=== PATIENT | female | born 1975 | race Caucasian/White ===

== ENCOUNTER 2017-11-24 08:19 | Emergency (ER) | payer MEDICAID ==
[2017-11-24] MEDS ORDERED: RX INFO: IV CONTRAST WAS GIVEN 1 EACH MISC MISCELLANE PRN (08:27)
[2017-11-24] MEDS ORDERED: SODIUM CHLORIDE 0.9% 1,000 ML IV STA (08:27)
[2017-11-24] MEDS ORDERED: diphenhydrAMINE 50 MG/ML 1 ML VIAL IVP STA (08:28)
[2017-11-24] MEDS ORDERED: methylPREDNISolone SOD SUCCI 125 MG/2 ML VIAL IV STA (08:28)
[2017-11-24] MEDS ORDERED: FAMOTIDINE 20 MG/2 ML VIAL IV STA (08:28)
[2017-11-24] MEDS: MORPHINE SULFATE 4 MG/ML SYRINGE IV STA ×2 (08:41→10:51)
--- NOTE | 2017-11-24 08:50 | ED ---
General Adult HPI - General Chief complaint: Back Pain/Injury Stated complaint: Back pain/arm tingling Time Seen by Provider: 11/24/17 08:28 Source: patient, RN notes reviewed, old records reviewed Mode of arrival: wheelchair Limitations: no limitations - History of Present Illness Initial comments: This is a 42-year-old female to the ER for evaluation regarding chest pain and back pain neck pain and hand tingling. Patient has no cardiogenic risk factors. No travel history no sick contacts. Patient denies any recent trauma. Symptoms began last night. Have been persistent and episodic throughout the day. No diaphoresis no shortness of breath. No recent fevers cough or congestion. No history of prior nerve issues - Related Data Home Medications Medication Instructions Recorded Confirmed ALPRAZolam [Xanax] 0.25 mg PO DAILY PRN 11/24/17 11/24/17 Cholecalciferol [Vitamin D3] 1,000 unit PO DAILY 11/24/17 11/24/17 Lisinopril [Zestril] 5 mg PO DAILY 11/24/17 11/24/17 Loratadine [Claritin] 10 mg PO DAILY 11/24/17 11/24/17 Meclizine [Antivert] 25 mg PO TID PRN 11/24/17 11/24/17 Omeprazole 20 mg PO DAILY 11/24/17 11/24/17 Allergies Allergy/AdvReac Type Severity Reaction Status Date / Time Iodinated Contrast- Oral and Allergy Dyspnea Verified 11/24/17 08:41 IV Dye Review of Systems ROS Statement: Those systems with pertinent positive or pertinent negative responses have been documented in the HPI. ROS Other: All systems not noted in ROS Statement are negative. Past Medical History Past Medical History: Hyperlipidemia, Hypertension, Thyroid Disorder Additional Past Medical History / Comment(s): CVID, reynaud's, nessa's, meniere's History of Any Multi-Drug Resistant Organisms: None Reported Past Surgical History: Appendectomy, Uterine Ablation Past Psychological History: No Psychological Hx Reported Smoking Status: Former smoker Past Alcohol Use History: Occasional Past Drug Use History: None Reported General Exam Limitations: no limitations General appearance: alert, in no apparent distress, anxious Head exam: Present: atraumatic, normocephalic, normal inspection Eye exam: Present: normal appearance, PERRL, EOMI. Absent: scleral icterus, conjunctival injection, periorbital swelling ENT exam: Present: normal exam, mucous membranes moist Neck exam: Present: normal inspection. Absent: tenderness, meningismus, lymphadenopathy Respiratory exam: Present: normal lung sounds bilaterally. Absent: respiratory distress, wheezes, rales, rhonchi, stridor Cardiovascular Exam: Present: regular rate, normal rhythm, normal heart sounds. Absent: systolic murmur, diastolic murmur, rubs, gallop, clicks GI/Abdominal exam: Present: soft, normal bowel sounds. Absent: distended, tenderness, guarding, rebound, rigid Extremities exam: Present: normal inspection, full ROM, normal capillary refill. Absent: tenderness, pedal edema, joint swelling, calf tenderness Back exam: Present: normal inspection Neurological exam: Present: alert, oriented X3, CN II-XII intact Psychiatric exam: Present: normal affect, normal mood Skin exam: Present: warm, dry, intact, normal color. Absent: rash Course Vital Signs 11/24/17 11/24/17 11/24/17 08:21 09:48 11:02 Temperature 97.0 F L 98.2 F Pulse Rate 110 H 79 83 Respiratory 18 16 16 Rate Blood Pressure 179/83 129/81 119/76 O2 Sat by Pulse 100 100 97 Oximetry - Reevaluation(s) Reevaluation #1: patient's blood pressure responded with no treatment or therapy, pain control EKG Findings - EKG Comments: EKG Findings:: EKG shows normal sinus rhythm rate of 82, VA 152, QRS 90, QTC 432 Medical Decision Making - Medical Decision Making 42 female the ER for evaluation of back pain and left neck pain and tingling in bilateral arms and hands. Patient is CK which is negative for acute disease labwork EKG and troponin are negative. Patient states that this time her symptoms are improved, she was considered for heart, symptoms 3 days. No significant acute changes. No trauma. Patient can be discharged home - Lab Data Result diagrams: 11/24/17 08:37 11/24/17 08:37 Lab Results 11/24/17 11/24/17 11/24/17 Range/Units 08:37 08:37 08:37 WBC 5.7 (3.8-10.6) k/uL RBC 4.44 (3.80-5.40) m/uL Hgb 13.6 (11.4-16.0) gm/dL Hct 42.5 (34.0-46.0) % MCV 95.6 (80.0-100.0) fL MCH 30.7 (25.0-35.0) pg MCHC 32.1 (31.0-37.0) g/dL RDW 12.5 (11.5-15.5) % Plt Count 247 (150-450) k/uL Neutrophils % 63 % Lymphocytes % 26 % Monocytes % 6 % Eosinophils % 3 % Basophils % 1 % Neutrophils # 3.6 (1.3-7.7) k/uL Lymphocytes # 1.5 (1.0-4.8) k/uL Monocytes # 0.3 (0-1.0) k/uL Eosinophils # 0.2 (0-0.7) k/uL Basophils # 0.0 (0-0.2) k/uL PT (9.0-12.0) sec INR (<1.2) APTT (22.0-30.0) sec D-Dimer (<0.60) mg/L FEU Sodium 139 (137-145) mmol/L Potassium 4.0 (3.5-5.1) mmol/L Chloride 104 (98-107) mmol/L Carbon Dioxide 24 (22-30) mmol/L Anion Gap 11 mmol/L BUN 15 (7-17) mg/dL Creatinine 0.83 (0.52-1.04) mg/dL Est GFR (MDRD) Af Amer >60 (>60 ml/min/1.73 sqM) Est GFR (MDRD) Non-Af >60 (>60 ml/min/1.73 sqM) Glucose 109 H (74-99) mg/dL Calcium 9.9 (8.4-10.2) mg/dL Phosphorus 3.4 (2.5-4.5) mg/dL Magnesium 1.8 (1.6-2.3) mg/dL Total Bilirubin 0.5 (0.2-1.3) mg/dL AST 23 (14-36) U/L ALT 36 (9-52) U/L Alkaline Phosphatase 70 (38-126) U/L Total Creatine Kinase 57 (30-135) U/L CK-MB (CK-2) 0.2 (0.0-2.4) ng/mL CK-MB (CK-2) Rel Index 0.4 Troponin I <0.012 (0.000-0.034) ng/mL Total Protein 7.2 (6.3-8.2) g/dL Albumin 4.5 (3.5-5.0) g/dL 11/24/17 Range/Units 08:37 WBC (3.8-10.6) k/uL RBC (3.80-5.40) m/uL Hgb (11.4-16.0) gm/dL Hct (34.0-46.0) % MCV (80.0-100.0) fL MCH (25.0-35.0) pg MCHC (31.0-37.0) g/dL RDW (11.5-15.5) % Plt Count (150-450) k/uL Neutrophils % % Lymphocytes % % Monocytes % % Eosinophils % % Basophils % % Neutrophils # (1.3-7.7) k/uL Lymphocytes # (1.0-4.8) k/uL Monocytes # (0-1.0) k/uL Eosinophils # (0-0.7) k/uL Basophils # (0-0.2) k/uL PT 9.8 (9.0-12.0) sec INR 1.0 (<1.2) APTT 26.0 (22.0-30.0) sec D-Dimer 0.29 (<0.60) mg/L FEU Sodium (137-145) mmol/L Potassium (3.5-5.1) mmol/L Chloride (98-107) mmol/L Carbon Dioxide (22-30) mmol/L Anion Gap mmol/L BUN (7-17) mg/dL Creatinine (0.52-1.04) mg/dL Est GFR (MDRD) Af Amer (>60 ml/min/1.73 sqM) Est GFR (MDRD) Non-Af (>60 ml/min/1.73 sqM) Glucose (74-99) mg/dL Calcium (8.4-10.2) mg/dL Phosphorus (2.5-4.5) mg/dL Magnesium (1.6-2.3) mg/dL Total Bilirubin (0.2-1.3) mg/dL AST (14-36) U/L ALT (9-52) U/L Alkaline Phosphatase (38-126) U/L Total Creatine Kinase (30-135) U/L CK-MB (CK-2) (0.0-2.4) ng/mL CK-MB (CK-2) Rel Index Troponin I (0.000-0.034) ng/mL Total Protein (6.3-8.2) g/dL Albumin (3.5-5.0) g/dL - Radiology Data Radiology results: report reviewed (CT chest is negative for acute disease), image reviewed Disposition Clinical Impression: Paresthesia, Chest pain Disposition: HOME SELF-CARE Condition: Good Instructions: Chest Pain (ED), Paresthesia (ED) Referrals: Dipti Liriano DO [Primary Care Provider] - 1-2 days
[2017-11-24 08:51] LABS: Basophils % (A) 1 %; Eosinophils # (A) 0.2 k/uL (0-0.7); Eosinophils % (A) 3 %; HCT 42.5 % (34.0-46.0); HGB 13.6 gm/dL (11.4-16.0); Lymphocytes # (A) 1.5 k/uL (1.0-4.8); Lymphocytes % (A) 26 %; MCH 30.7 pg (25.0-35.0); MCHC 32.1 g/dL (31.0-37.0); MCV 95.6 fL (80.0-100.0); Monocytes # (A) 0.3 k/uL (0-1.0); Monocytes % (A) 6 %; Neutrophils # (A) 3.6 k/uL (1.3-7.7); Neutrophils % (A) 63 %; Platelet Count 247 k/uL (150-450); RBC 4.44 m/uL (3.80-5.40); RDW 12.5 % (11.5-15.5); WBC 5.7 k/uL (3.8-10.6)
[2017-11-24 09:02] LABS: D-Dimer 0.29 mg/L FEU (<0.60)
[2017-11-24 09:07] LABS: ALT 36 U/L (9-52); AST 23 U/L (14-36); Albumin 4.5 g/dL (3.5-5.0); Alkaline Phosphatase 70 U/L (38-126); Anion Gap 11 mmol/L; Blood Urea Nitrogen 15 mg/dL (7-17); Calcium 9.9 mg/dL (8.4-10.2); Carbon Dioxide 24 mmol/L (22-30); Chloride 104 mmol/L (98-107); Glucose 109 mg/dL (74-99); Magnesium 1.8 mg/dL (1.6-2.3); Phosphorus 3.4 mg/dL (2.5-4.5); Sodium 139 mmol/L (137-145); Total Bilirubin 0.5 mg/dL (0.2-1.3); Total Protein 7.2 g/dL (6.3-8.2)
[2017-11-24 09:08] LABS: Prothrombin Time 9.8 sec (9.0-12.0)
[2017-11-24 09:11] LABS: Creatine Kinase 57 U/L (30-135)
[2017-11-24 09:23] LABS: Creatine Kinase MB 0.2 ng/mL (0.0-2.4); Troponin I <0.012 ng/mL (0.000-0.034)
--- NOTE | 2017-11-24 09:42 | CT ---
EXAMINATION TYPE: CT angio chest DATE OF EXAM: 11/24/2017 COMPARISON: NONE HISTORY: SOB, pain between shoulder blades CT DLP: 484 mGycm CONTRAST: CT chest with contrast and 3D reconstruction with MIP imaging is performed with IV Contrast, patient injected with 100 mL of Omnipaque 350. Contrast-enhanced CT of the chest was performed through the course of the pulmonary arteries with rahel g and mediastinal window settings submitted. 3D reconstruction with MIP imaging was also performed. PULMONARY ARTERIES: The pulmonary arteries and their major tributaries are patent. I do not see charlette dence for sizable filling defect to suggest pulmonary embolic process. LUNGS: The lungs are clear and free of consolidation. Groundglass densities at the lung bases may ref lect acute inflammatory process. No evidence for atelectasis. No pulmonary nodule or mass is detect ed. No pleural effusion. MEDIASTINUM: Thoracic aorta is of normal caliber,however, evaluation is limited given timing of the contrast bolus. If there is concern for thoracic aortic pathology consider SHUKRI. Correlate clinicall y . The heart is not enlarged. No evidence for mediastinal mass. No mediastinal lymph nodes greater than 1cm. HILAR STRUCTURES: No evidence for mass. No hilar lymph nodes greater than 1 cm. UPPER ABDOMEN: Nonspecific hypoattenuating lesion near the dome of the liver posterior segment right hepatic lobe measuring 2.8 cm can be further evaluated with ultrasound or contrast CT of the abdomen on a nonemergent basis. IMPRESSION: 1. No evidence for Pulmonary embolism at this time. Groundglass densities at the lung bases may refl ect acute inflammatory process. 2. Nonspecific hepatic lesion.
[2017-11-24 09:49] VITALS: RESP 16
[2017-11-24 11:03] VITALS: BP 119/76; PULSE 83; TEMP 98.2
== END 2017-11-24 11:02 | disposition home or self-care (01) ==
LOC: EC 08:19
DX: R07.9 Chest pain, unspecified (principal); R20.2 Paresthesia of skin; M54.2 Cervicalgia; M54.9 Dorsalgia, unspecified; I10 Essential (primary) hypertension; Z87.891 Personal history of nicotine dependence; Z90.49 Acquired absence of other specified parts of digestive tract; Z79.899 Other long term (current) drug therapy; Z91.041 Radiographic dye allergy status; Z53.29 Procedure and treatment not carried out because of patient's decision for other reasons
CPT/HCPCS: 36415; 93005; 85379; 80053; 82550; 82553; 83735; 84100; 84484; 85025; 85610; 85730; 71275; 99284; 96374; 96375 ×2; 96361; J1200; J2930; Q9967

== ENCOUNTER → 2018-08-06 | Outpatient (CLI) | payer MEDICAID ==
[2018-08-06 07:52] LABS: HCT 39.5 % (34.0-46.0); HGB 13.5 gm/dL (11.4-16.0); MCH 31.7 pg (25.0-35.0); MCHC 34.1 g/dL (31.0-37.0); Mean Platelet Volume 7.1; Platelet Count 204 k/uL (150-450); RBC 4.25 m/uL (3.80-5.40); RDW 13.1 % (11.5-15.5); WBC 6.3 k/uL (3.8-10.6)
[2018-08-06 19:46] LABS: LDL Cholesterol,Calculated 125.2 mg/dL (0.0-131.0); Potassium 4.1 mmol/L (3.5-5.5); VLDL Calculation 23.8 mg/dL (5.00-40.00)
== END ==
LOC: LABWHC1 06:34
PROVIDERS: ATTEND Family Medicine
DX: I10 Essential (primary) hypertension (principal); E78.00 Pure hypercholesterolemia, unspecified
CPT/HCPCS: 36415; 80051; 80061; 82565; 82947; 84450; 84460; 84520; 85027

== ENCOUNTER → 2019-02-25 | Outpatient (CLI) | payer MEDICAID ==
[2019-02-25 07:27] LABS: Basophils % (A) 1 %; Eosinophils # (A) 0.4 k/uL (0-0.7); Eosinophils % (A) 6 %; HGB 13.7 gm/dL (11.4-16.0); Lymphocytes # (A) 1.8 k/uL (1.0-4.8); Lymphocytes % (A) 28 %; MCH 30.5 pg (25.0-35.0); MCHC 32.7 g/dL (31.0-37.0); MCV 93.5 fL (80.0-100.0); Mean Platelet Volume 6.7; Monocytes # (A) 0.3 k/uL (0-1.0); Monocytes % (A) 5 %; Neutrophils # (A) 3.7 k/uL (1.3-7.7); Neutrophils % (A) 59 %; Platelet Count 252 k/uL (150-450); RBC 4.49 m/uL (3.80-5.40); RDW 12.7 % (11.5-15.5); WBC 6.3 k/uL (3.8-10.6)
[2019-02-25 08:42] LABS: Appearance,Urine Clear (Clear); Bacteria,Urine Rare /hpf; Bilirubin,Urine Negative (Negative); Blood,Urine Trace (Negative); Color,Urine Yellow; Glucose,Urine (UA) Negative (Negative); Ketones,Urine Negative (Negative); Leukocyte Esterase,Urine Negative (Negative); Mucus,Urine Rare /hpf; Nitrite,Urine Negative (Negative); Protein,Urine Trace (Negative); RBC,Urine 3 /hpf (0-5); Specific Gravity,Urine 1.023 (1.001-1.035); Squamous Epithelial Cell,Urine 7 /hpf (0-4); Urobilinogen,Urine <2.0 mg/dL (<2.0); WBC,Urine 3 /hpf (0-5)
[2019-02-25 09:17] LABS: Erythrocyte Sedimentation Rate 8 mm/hr (0-20)
[2019-02-25 12:13] LABS: Rheumatoid Factor 7 IU/mL (0-15)
[2019-02-25 12:17] LABS: Vitamin D 25 Hydroxy 21.1 ng/mL (30.0-100.0)
[2019-02-25 12:26] LABS: Protein, Total 6.2 g/dL (6.2-8.2)
[2019-02-25 12:27] LABS: ALT 19 U/L (8-44); AST 14 U/L (13-35); Albumin/Globulin Ratio 2.44 (1.60-3.17); Alkaline Phosphatase 60 U/L (41-126); C Reactive Protein <0.4 mg/dL (0.0-0.8); Carbon Dioxide 28.3 mmol/L (21.6-31.8); Chloride 105 mmol/L (96-109); Creatine Kinase 33 U/L (26-186); Globulin 1.8 g/dL (1.6-3.3); Glucose 86 mg/dL (70-110); Potassium 3.4 mmol/L (3.5-5.5); Sodium 139 mmol/L (135-145); Thyroid Peroxidase Antibodies <28.0 U/mL (0.0-60.0); Total Bilirubin 0.6 mg/dL (0.3-1.2); Total Protein 6.2 g/dL (6.2-8.2); Uric Acid 5.2 mg/dL (2.9-7.7)
[2019-02-25 12:56] LABS: Hepatitis C IgG Antibody Non-Reactive (Non-Reactive)
[2019-02-25 13:17] LABS: Thyroglobulin 2.89 ng/mL (1.60-59.90)
[2019-02-25 15:25] LABS: Anti-DNA, DS unit <1.0 IU/mL; Cardiolipin Ab IgG Interp NEGATIVE (NEGATIVE); Cardiolipin Ab IgM Interp NEGATIVE (NEGATIVE); Cardiolipin IgA Antibody 1.2 U/mL; Cardiolipin IgM Antibody 5.5 U/mL; DNA Double-Stranded NEGATIVE (NEGATIVE); RNP <0.2 AI; Scleroderma SC-70 Ab <0.2 AI
--- NOTE | 2019-02-25 16:29 | XR ---
EXAMINATION TYPE: XR hand complete bilateral DATE OF EXAM: 02/25/2019 CLINICAL HISTORY: Polyarthritis , bilateral hand pain TECHNIQUE: Frontal, lateral and oblique images of the bilateral hands were obtained. COMPARISON: None. FINDINGS: There is no acute fracture/dislocation evident in the either hand. Very minimal degenerati ve change of the first metacarpal phalangeal joint is seen bilaterally with joint space narrowing. Ca rpal carpal interspaces are maintained. Osseous mineralization is within normal limits. Soft tissues are unremarkable. IMPRESSION: There is no acute fracture or dislocation in either hand. Very minimal degenerative espitia ge of the first metacarpal phalangeal joint bilaterally.
--- NOTE | 2019-02-25 16:30 | XR ---
EXAMINATION TYPE: XR lumbosacral spine min 4V DATE OF EXAM: 02/25/2019 CLINICAL HISTORY: Polyarthritis and back pain TECHNIQUE: Frontal, lateral, and oblique images of the lumbar spine are obtained. COMPARISON: None FINDINGS: There are 5 lumbar type vertebral bodies identified. The lumbar spine shows satisfactory alignment without evidence of acute fracture or dislocation. 12th ribs are slightly asymmetric, right is longer than the left. Vertebral body heights and disk space heights are within normal limits. T he oblique images appear within normal limits. Minimal degenerative changes are seen as multilevel ve ry small anterior osteophytes and intervertebral disc space narrowing at L5-S1 as well as facet arthr opathy at L4-S1. The overlying soft tissue appears unremarkable. IMPRESSION: No acute fracture or dislocation is seen in the lumbar spine. Minimal degenerative marrero es of the lumbar spine.
--- NOTE | 2019-02-25 16:31 | XR ---
EXAMINATION TYPE: XR pelvis AP view DATE OF EXAM: 02/25/2019 CLINICAL HISTORY: Polyarthritis TECHNIQUE: A single AP view of the pelvis is obtained. COMPARISON: None. FINDINGS: There is no acute fracture/dislocation evident in the pelvis. The hip and sacroiliac join ts appear symmetric. There is minimal cephalad joint space narrowing of the femoral acetabular joints The overlying soft tissue appears unremarkable. IMPRESSION: There is no acute fracture or dislocation in the pelvis. Minimal cephalad joint space na rrowing of the femoral acetabular joints.
--- NOTE | 2019-02-25 16:32 | XR ---
EXAMINATION TYPE: XR wrist complete BILATERAL DATE OF EXAM: 02/25/2019 CLINICAL HISTORY: Polyarthropathy and bilateral wrist pain. TECHNIQUE: Frontal, lateral and oblique images of the bilateral wrists were obtained. Bilateral scap hoid views were also obtained. COMPARISON: Bilateral hand radiographs of the same date FINDINGS: There is no acute fracture/dislocation evident in either wrist. The joint spaces in the b oth wrists appear within normal limits other than very minimal joint space narrowing of the first car pal metacarpal joints. The overlying soft tissue appears unremarkable. IMPRESSION: There is no acute fracture or dislocation in either wrist. Minimal joint space narrowing of the first carpometacarpal joint bilaterally.
[2019-02-26 10:33] LABS: HLA B27 NEGATIVE
[2019-02-26 12:05] LABS: Aldolase 2.2 U/L (1.2-7.6)
[2019-02-26 12:08] LABS: Angiotensin-1 Converting Enz. 13 U/L (8-52)
[2019-02-28 11:44] LABS: Albumin 3.77 g/dL (3.80-4.90); Gamma Globulin 0.69 g/dL (0.70-1.50)
[2019-02-28 14:15] LABS: APTT 49 Sec(s) (<43); APTT 1:1 Mix 42 Sec(s) (<43); Dilute Russell Viper Venom 44 Sec(s) (<44)
[2019-02-28 15:51] LABS: C-ANCA <1:20 Titer (<1:20); P-ANCA <1:20 Titer (<1:20)
[2019-03-01 14:27] LABS: Histone Antibody 0.3 UNITS (<1.0)
[2019-03-01 14:50] LABS: Cyclic Citrullinated Pep IgG 3
== END | disposition home or self-care (01) ==
LOC: LABWHC1 07:01
PROVIDERS: ATTEND Physician Assistant Medical
DX: M19.042 Primary osteoarthritis, left hand (principal); M19.041 Primary osteoarthritis, right hand; M47.816 Spondylosis without myelopathy or radiculopathy, lumbar region; M25.859 Other specified joint disorders, unspecified hip; M25.842 Other specified joint disorders, left hand; M25.841 Other specified joint disorders, right hand; I73.00 Raynaud's syndrome without gangrene; E06.3 Autoimmune thyroiditis
CPT/HCPCS: 36415; 72110; 72170; 80053; 81001; 82085; 82164; 82306; 82550; 83516; 83520; 83883; 84165; 84432; 84439; 84443; 84550; 85025; 85613; 85652; 85730; 85732; 86038; 86140; 86147; 86160; 86162; 86200; 86225; 86235; 86255; 86334; 86376; 86431; 86800; 86803; 86812; 87340

== ENCOUNTER 2019-03-01 19:58 | Emergency (ER) | payer MEDICAID ==
[2019-03-01 20:41] VITALS: TEMP 98.1
[2019-03-01] MEDS ORDERED: ACETAMINOPHEN TAB 325 MG TAB PO STA (22:03)
--- NOTE | 2019-03-01 22:30 | ED ---
Extremity Problem HPI - General Source: patient Mode of arrival: ambulatory Limitations: no limitations <Vitaly Bo - Last Filed: 03/02/19 00:10> <Estefania Lopez - Last Filed: 03/02/19 07:50> - General Chief complaint: Extremity Problem,Nontraumatic Stated complaint: bone pain, bodyaches Time Seen by Provider: 03/01/19 21:11 - History of Present Illness Initial comments: Patient is a 43-year-old female with complex medical history of autoimmune conditions that is presenting to emergency Department for general body aches and fatigue. Patient reports that since February 17 she has developed general pain t hroughout her whole body especially in the lower extremities. Patient reports that the pain is in her "bones". Patient reports also feeling fatigued and occasionally short of breath. Patient she sees an resource development manager who referred her to a spanish language lecturer. Patient went to see the spanish language lecturer who jose labs and told her to follow up on March 09. Patient states the pain has gotten so severe in her joints that she decided to come to the emergency department. Patient does report nausea but denies vomiting or diarrhea. Patient does report occasional lightheadedness but denies headache. Patient reports taking Tylenol to alleviate her pain. Patient denies fever, chest pain, chest tightness, a bdominal pain, urinary or vaginal symptoms. (Vitaly Bo) - Related Data Home Medications Medication Instructions Recorded Confirmed Lisinopril [Zestril] 5 mg PO DAILY 11/24/17 03/01/19 Loratadine [Claritin] 10 mg PO DAILY 11/24/17 03/01/19 Omeprazole 20 mg PO DAILY 11/24/17 03/01/19 Acetaminophen [Tylenol Extra 500 mg PO Q4H PRN 03/01/19 03/01/19 Strength] Previous Rx's Medication Instructions Recorded methylPREDNISolone [Medrol Dose 4 mg PO DIRECTED #1 pack 03/02/19 Pack] Allergies Allergy/AdvReac Type Severity Reaction Status Date / Time amoxicillin Allergy Rash/Hives Verified 03/01/19 21:19 doxycycline Allergy Rash/Hives Verified 03/01/19 21:19 Iodinated Contrast- Oral and Allergy Dyspnea Verified 03/01/19 21:19 IV Dye Review of Systems ROS Other: All systems not noted in ROS Statement are negative. <Vitaly Bo - Last Filed: 03/02/19 00:10> ROS Other: All systems not noted in ROS Statement are negative. <JohnEstefania P - Last Filed: 03/02/19 07:50> ROS Statement: Those systems with pertinent positive or pertinent negative responses have been documented in the HPI. Past Medical History Past Medical History: Hyperlipidemia, Hypertension, Thyroid Disorder Additional Past Medical History / Comment(s): CVID, reynaud's, nessa's, meniere's History of Any Multi-Drug Resistant Organisms: None Reported Past Surgical History: Appendectomy, Uterine Ablation Past Psychological History: No Psychological Hx Reported Smoking Status: Former smoker Past Alcohol Use History: Occasional Past Drug Use History: None Reported <Vitaly Bo - Last Filed: 03/02/19 00:10> General Exam Limitations: no limitations General appearance: alert, in no apparent distress Head exam: Present: atraumatic, normocephalic, normal inspection Eye exam: Present: normal appearance, PERRL, EOMI Pupils: Present: normal accommodation ENT exam: Present: normal oropharynx, mucous membranes moist, TM's normal bilaterally Neck exam: Present: normal inspection, full ROM. Absent: lymphadenopathy Respiratory exam: Present: normal lung sounds bilaterally Cardiovascular Exam: Present: regular rate, normal rhythm, normal heart sounds GI/Abdominal exam: Present: soft. Absent: tenderness, guarding, rebound Extremities exam: Absent: tenderness (No tenderness of palpation.), calf tenderness Back exam: Present: normal inspection, full ROM. Absent: CVA tenderness (R), CVA tenderness (L) Neurological exam: Present: alert, oriented X3 Psychiatric exam: Present: normal affect, normal mood Skin exam: Present: warm, intact, normal color <Vitaly Bo - Last Filed: 03/02/19 00:10> - General Exam Comments Initial Comments: Neuro exam unremarkable. (Vitaly Bo) Course Vital Signs 03/01/19 03/01/19 03/01/19 20:36 21:40 23:40 Temperature 98.1 F Pulse Rate 108 H 77 81 Respiratory 20 18 18 Rate Blood Pressure 132/93 133/81 129/88 O2 Sat by Pulse 99 98 99 Oximetry 03/02/19 00:33 Temperature 98.1 F Pulse Rate 77 Respiratory 18 Rate Blood Pressure 121/78 O2 Sat by Pulse 99 Oximetry Medical Decision Making - Lab Data Result diagrams: 03/01/19 22:20 03/01/19 22:20 <Vitaly Bo - Last Filed: 03/02/19 00:10> - Lab Data Result diagrams: 03/01/19 22:20 03/01/19 22:20 <Estefania Lopez - Last Filed: 03/02/19 07:50> - Medical Decision Making Patient is a 43-year-old female presenting to emergency Department with generalized body aches and fatigue. CBC, CMP, creatinine kinase and UA were obtained. Labs were unremarkable. Patient was given Tylenol and then Toradol for pain control. Patient will be discharged with a Medrol Dosepak. Considering her complex autoimmune medical history I am suspecting an underlying autoimmune/rheumatologic condition causing her current symptoms. Patient will be discharged and advised to follow with primary care or rheumatology. Patient advised to return to the emergency department if symptoms worsen. Case discussed with physician. (Vitaly Bo) I was available for consultation in the emergency department. The history and physical exam were done by the midlevel provider. I was consulted for this pa tavon's care. I reviewed the case with the midlevel provider and based on their presentation of the patient, I agree with the assessment, medical decision making and plan of care as documented. Chart was dictated using [employer] dictation software. Attempts were made to correct any dictation errors however some typographical errors may persist. (Estefania Lopez) - Lab Data Lab Results 03/01/19 03/01/19 03/01/19 Range/Units 22:20 22:20 22:20 WBC 9.8 (3.8-10.6) k/uL RBC 4.92 (3.80-5.40) m/uL Hgb 14.8 (11.4-16.0) gm/dL Hct 45.9 (34.0-46.0) % MCV 93.3 (80.0-100.0) fL MCH 30.1 (25.0-35.0) pg MCHC 32.2 (31.0-37.0) g/dL RDW 12.7 (11.5-15.5) % Plt Count 276 (150-450) k/uL Neutrophils % 65 % Lymphocytes % 22 % Monocytes % 6 % Eosinophils % 4 % Basophils % 1 % Neutrophils # 6.4 (1.3-7.7) k/uL Lymphocytes # 2.2 (1.0-4.8) k/uL Monocytes # 0.6 (0-1.0) k/uL Eosinophils # 0.4 (0-0.7) k/uL Basophils # 0.1 (0-0.2) k/uL Sodium 140 (137-145) mmol/L Potassium 3.6 (3.5-5.1) mmol/L Chloride 105 (98-107) mmol/L Carbon Dioxide 27 (22-30) mmol/L Anion Gap 8 mmol/L BUN 11 (7-17) mg/dL Creatinine 0.74 (0.52-1.04) mg/dL Est GFR (CKD-EPI)AfAm >90 (>60 ml/min/1.73 sqM) Est GFR (CKD-EPI)NonAf >90 (>60 ml/min/1.73 sqM) Glucose 103 H (74-99) mg/dL Calcium 10.3 H (8.4-10.2) mg/dL Total Bilirubin 0.3 (0.2-1.3) mg/dL AST 16 (14-36) U/L ALT 18 (9-52) U/L Alkaline Phosphatase 61 (38-126) U/L Creatine Kinase (30-135) U/L Total Protein 7.5 (6.3-8.2) g/dL Albumin 4.7 (3.5-5.0) g/dL Urine Color Colorless Urine Appearance Clear (Clear) Urine pH 6.5 (5.0-8.0) Ur Specific [place] 1.007 (1.001-1.035) Urine Protein Negative (Negative) Urine Glucose (UA) Negative (Negative) Urine Ketones Negative (Negative) Urine Blood Negative (Negative) Urine Nitrite Negative (Negative) Urine Bilirubin Negative (Negative) Urine Urobilinogen <2.0 (<2.0) mg/dL Ur Leukocyte Esterase Negative (Negative) 03/01/19 Range/Units 22:20 WBC (3.8-10.6) k/uL RBC (3.80-5.40) m/uL Hgb (11.4-16.0) gm/dL Hct (34.0-46.0) % MCV (80.0-100.0) fL MCH (25.0-35.0) pg MCHC (31.0-37.0) g/dL RDW (11.5-15.5) % Plt Count (150-450) k/uL Neutrophils % % Lymphocytes % % Monocytes % % Eosinophils % % Basophils % % Neutrophils # (1.3-7.7) k/uL Lymphocytes # (1.0-4.8) k/uL Monocytes # (0-1.0) k/uL Eosinophils # (0-0.7) k/uL Basophils # (0-0.2) k/uL Sodium (137-145) mmol/L Potassium (3.5-5.1) mmol/L Chloride (98-107) mmol/L Carbon Dioxide (22-30) mmol/L Anion Gap mmol/L BUN (7-17) mg/dL Creatinine (0.52-1.04) mg/dL Est GFR (CKD-EPI)AfAm (>60 ml/min/1.73 sqM) Est GFR (CKD-EPI)NonAf (>60 ml/min/1.73 sqM) Glucose (74-99) mg/dL Calcium (8.4-10.2) mg/dL Total Bilirubin (0.2-1.3) mg/dL AST (14-36) U/L ALT (9-52) U/L Alkaline Phosphatase (38-126) U/L Creatine Kinase 32 (30-135) U/L Total Protein (6.3-8.2) g/dL Albumin (3.5-5.0) g/dL Urine Color Urine Appearance (Clear) Urine pH (5.0-8.0) Ur Specific [place] (1.001-1.035) Urine Protein (Negative) Urine Glucose (UA) (Negative) Urine Ketones (Negative) Urine Blood (Negative) Urine Nitrite (Negative) Urine Bilirubin (Negative) Urine Urobilinogen (<2.0) mg/dL Ur Leukocyte Esterase (Negative) Disposition Is patient prescribed a controlled substance at d/c from ED?: No Time of Disposition: 00:20 <Vitaly Bo - Last Filed: 03/02/19 00:10> <Estefania Lopez Last Filed: 03/02/19 07:50> Clinical Impression: Generalized pain Disposition: HOME SELF-CARE Condition: Stable Instructions (If sedation given, give patient instructions): Fatigue (ED) Additional Instructions: Please take prescribed medication as directed. Please follow-up with primary care and rheumatology. Please return to emergency department if symptoms worsen. Prescriptions: methylPREDNISolone [Medrol Dose Pack] 4 mg PO DIRECTED #1 pack Referrals: Dipti Liriano DO [Primary Care Provider] - 1-2 days
[2019-03-01 22:32] LABS: Basophils # (A) 0.1 k/uL (0-0.2); Basophils % (A) 1 %; Eosinophils # (A) 0.4 k/uL (0-0.7); Eosinophils % (A) 4 %; HCT 45.9 % (34.0-46.0); HGB 14.8 gm/dL (11.4-16.0); Lymphocytes # (A) 2.2 k/uL (1.0-4.8); Lymphocytes % (A) 22 %; MCH 30.1 pg (25.0-35.0); MCHC 32.2 g/dL (31.0-37.0); MCV 93.3 fL (80.0-100.0); Mean Platelet Volume 6.4; Monocytes # (A) 0.6 k/uL (0-1.0); Monocytes % (A) 6 %; Neutrophils # (A) 6.4 k/uL (1.3-7.7); Neutrophils % (A) 65 %; Platelet Count 276 k/uL (150-450); RBC 4.92 m/uL (3.80-5.40); RDW 12.7 % (11.5-15.5); WBC 9.8 k/uL (3.8-10.6)
[2019-03-01 22:33] LABS: Appearance,Urine Clear (Clear); Bilirubin,Urine Negative (Negative); Blood,Urine Negative (Negative); Color,Urine Colorless; Glucose,Urine (UA) Negative (Negative); Ketones,Urine Negative (Negative); Leukocyte Esterase,Urine Negative (Negative); Nitrite,Urine Negative (Negative); PH, Urine 6.5 (5.0-8.0); Protein,Urine Negative (Negative); Specific Gravity,Urine 1.007 (1.001-1.035); Urobilinogen,Urine <2.0 mg/dL (<2.0)
[2019-03-01 22:39] LABS: ALT 18 U/L (9-52); AST 16 U/L (14-36); Albumin 4.7 g/dL (3.5-5.0); Alkaline Phosphatase 61 U/L (38-126); Anion Gap 8 mmol/L; Blood Urea Nitrogen 11 mg/dL (7-17); Calcium 10.3 mg/dL (8.4-10.2); Carbon Dioxide 27 mmol/L (22-30); Chloride 105 mmol/L (98-107); Glucose 103 mg/dL (74-99); Potassium 3.6 mmol/L (3.5-5.1); Sodium 140 mmol/L (137-145); Total Bilirubin 0.3 mg/dL (0.2-1.3); Total Protein 7.5 g/dL (6.3-8.2)
[2019-03-01 23:51] VITALS: RESP 18
[2019-03-02] MEDS ORDERED: KETOROLAC 30 MG/ML 1 ML VIAL IVP STA (00:04)
[2019-03-02 00:35] VITALS: BP 121/78; PULSE 77
== END 2019-03-02 00:34 | disposition home or self-care (01) ==
LOC: EC 19:58
DX: R52 Pain, unspecified (principal); R53.83 Other fatigue; R06.02 Shortness of breath; I10 Essential (primary) hypertension; Z79.899 Other long term (current) drug therapy; Z88.1 Allergy status to other antibiotic agents; Z91.041 Radiographic dye allergy status; Z87.891 Personal history of nicotine dependence
CPT/HCPCS: 36415; 80053; 81003; 82550; 85025; 96374; 99283

== ENCOUNTER 2019-03-25 16:25 | Observation (INO) | payer MEDICAID ==
[2019-03-25] MEDS ORDERED: diphenhydrAMINE 50 MG/ML 1 ML VIAL IVP STA (17:18)
[2019-03-25] MEDS ORDERED: methylPREDNISolone SOD SUCCI 125 MG/2 ML VIAL IV STA (17:18)
[2019-03-25] MEDS ORDERED: FAMOTIDINE 20 MG/2 ML VIAL IV STA (17:19)
[2019-03-25 17:28] LABS: Basophils % (A) 0 %; Eosinophils # (A) 0.2 k/uL (0-0.7); Eosinophils % (A) 2 %; HCT 38.4 % (34.0-46.0); HGB 12.9 gm/dL (11.4-16.0); Lymphocytes # (A) 1.7 k/uL (1.0-4.8); Lymphocytes % (A) 21 %; MCH 30.9 pg (25.0-35.0); MCHC 33.6 g/dL (31.0-37.0); Mean Platelet Volume 6.6; Monocytes # (A) 0.4 k/uL (0-1.0); Monocytes % (A) 5 %; Neutrophils # (A) 5.9 k/uL (1.3-7.7); Neutrophils % (A) 70 %; Platelet Count 248 k/uL (150-450); RBC 4.17 m/uL (3.80-5.40); RDW 13.1 % (11.5-15.5); WBC 8.4 k/uL (3.8-10.6)
--- NOTE | 2019-03-25 17:28 | ED ---
General Adult HPI - General Chief complaint: Chest Pain Stated complaint: CHEST HEAVYNESS, NECK PAIN, SOB Time Seen by Provider: 03/25/19 16:39 Source: patient Mode of arrival: ambulatory Limitations: no limitations - History of Present Illness Initial comments: Dictation was produced using [employer] dictation software. please excuse any grammatical, word or spelling errors. Chief Complaint: 43-year-old female past medical history of Nesas's thyroiditis, dyslipidemia hypertension presents with acute onset right neck pa in. History of Present Illness: She is a 43-year-old female presents with acute onset right anterior neck pain. Patient states she woke up in her usual state of health. She was at work when she felt a strange a sharp pain originating for her right anterior neck just anterior to her sternocleidomastoid. Patient states the pain is so severe that it causes her to feel lightheaded to the point where she becomes presyncopal. Patient states she's had multiple episodes like this where she feels like she was passed out. Patient denies any neuro deficits. She is accompanied by her who is also equally concerned. The patient has a history of Nessa's thyroiditis she takes thyroid medication. Patient still feels that the right at this time. The ROS documented in this emergency department record has been reviewed and confirmed by me. Those systems with pertinent positive or negative responses have been documented in the HPI. All other systems are other negative and/or noncontributory. PHYSICAL EXAM: General Impression: Alert and oriented x3, not in acute distress HEENT: Normocephalic atraumatic, extra-ocular movements intact, pupils equal and reactive to light bilaterally, mucous membranes moist. Cardiovascular: Heart regular rate and rhythm, S1&S2 audible, no murmurs, rubs or gallops Chest: Lungs clear to auscultation bilaterally, no rhonchi, no wheeze, no rales Abdomen: Bowel sounds present, abdomen soft, non-tender, non-distended, no organomegaly Musculoskeletal: Pulses present and equal in all extremities, no peripheral edema, patient denies any reproducibility with side bending, neck rotation or neck flexion or extension. Motor: no focal deficits noted Neurological: CN II-XII grossly intact, no focal motor or sensory deficits noted, no ataxia Skin: Intact with no visualized rashes Psych: Normal affect and mood ED course: 43-year-old female presents with anterior neck pain. Patient is very anxious about her symptoms. Vital signs upon arrival are within acceptable limits. Physical examination is benign. Basic labs are obtained showing no acute processes. CT angio the head and neck was obtained to rule out any sort of serious medical disease. Vasculature is widely patent. There is no soft tissue findings to suggest patient's symptoms. At this point is likely musculoskeletal. Patient was notified of the results. Family and patient are very concerned about her symptoms. They then discussed that patient is also having postprandial epigastric pain. Patient is adamant about being placed in the hospital for GI evaluation. Given patient's symptoms of poor by mouth intake we will place patient in the hospital observation unit with GI consultation. Patient may benefit from EGD given patient's symptoms. Some concern that her symptoms are EKG interpretation: Ventricular rate 79, normal sinus rhythm,. Interval and 64, QS 92, QTC 424. No [place] prolongation, no QTC prolongation, no ST or T-wave changes noted. Overall, this EKG is unremarkable - Related Data Home Medications Medication Instructions Recorded Confirmed Lisinopril [Zestril] 5 mg PO DAILY 11/24/17 03/25/19 ALPRAZolam [Xanax] 0.25 mg PO BID PRN 03/25/19 03/25/19 Levocetirizine Dihydrochloride 5 mg PO DAILY 03/25/19 03/25/19 [Xyzal] Levothyroxine Sodium 25 mcg PO DAILY 03/25/19 03/25/19 Omeprazole 40 mg PO DAILY 03/25/19 03/25/19 Allergies Allergy/AdvReac Type Severity Reaction Status Date / Time amoxicillin Allergy Rash/Hives Verified 03/25/19 17:23 doxycycline Allergy Rash/Hives Verified 03/25/19 17:23 Iodinated Contrast- Oral and Allergy Dyspnea Verified 03/25/19 17:23 IV Dye Review of Systems ROS Statement: Those systems with pertinent positive or pertinent negative responses have been documented in the HPI. ROS Other: All systems not noted in ROS Statement are negative. Past Medical History Past Medical History: Hyperlipidemia, Hypertension, Thyroid Disorder Additional Past Medical History / Comment(s): CVID, reynaud's, nessa's, meniere's History of Any Multi-Drug Resistant Organisms: None Reported Past Surgical History: Appendectomy, Uterine Ablation Past Psychological History: Anxiety Smoking Status: Former smoker Past Alcohol Use History: Occasional Past Drug Use History: None Reported General Exam Limitations: no limitations Course Vital Signs 03/25/19 03/25/19 16:29 17:05 Temperature 97.4 F L Pulse Rate 114 H 94 Respiratory 20 Rate Blood Pressure 149/87 O2 Sat by Pulse 99 Oximetry Medical Decision Making - Lab Data Result diagrams: 03/25/19 17:22 03/25/19 17:22 Lab Results 03/25/19 03/25/19 Range/Units 17:22 17:22 WBC 8.4 (3.8-10.6) k/uL RBC 4.17 (3.80-5.40) m/uL Hgb 12.9 (11.4-16.0) gm/dL Hct 38.4 (34.0-46.0) % MCV 92.0 (80.0-100.0) fL MCH 30.9 (25.0-35.0) pg MCHC 33.6 (31.0-37.0) g/dL RDW 13.1 (11.5-15.5) % Plt Count 248 (150-450) k/uL Neutrophils % 70 % Lymphocytes % 21 % Monocytes % 5 % Eosinophils % 2 % Basophils % 0 % Neutrophils # 5.9 (1.3-7.7) k/uL Lymphocytes # 1.7 (1.0-4.8) k/uL Monocytes # 0.4 (0-1.0) k/uL Eosinophils # 0.2 (0-0.7) k/uL Basophils # 0.0 (0-0.2) k/uL Sodium 139 (137-145) mmol/L Potassium 3.5 (3.5-5.1) mmol/L Chloride 106 (98-107) mmol/L Carbon Dioxide 20 L (22-30) mmol/L Anion Gap 13 mmol/L BUN 8 (7-17) mg/dL Creatinine 0.70 (0.52-1.04) mg/dL Est GFR (CKD-EPI)AfAm >90 (>60 ml/min/1.73 sqM) Est GFR (CKD-EPI)NonAf >90 (>60 ml/min/1.73 sqM) Glucose 92 (74-99) mg/dL Calcium 9.7 (8.4-10.2) mg/dL Magnesium 1.8 (1.6-2.3) mg/dL Disposition Clinical Impression: Neck strain, Epigastric pain Disposition: ADMITTED IP TO THIS HOSP Condition: Fair Referrals: Dipti Liriano DO [Primary Care Provider] - 1-2 days Decision Time: 19:06
[2019-03-25 17:39] LABS: African American GFR (CKD) >90 (>60 ml/min/1.73 sqM); Anion Gap 13 mmol/L; Blood Urea Nitrogen 8 mg/dL (7-17); Calcium 9.7 mg/dL (8.4-10.2); Carbon Dioxide 20 mmol/L (22-30); Chloride 106 mmol/L (98-107); Glucose 92 mg/dL (74-99); Magnesium 1.8 mg/dL (1.6-2.3); Potassium 3.5 mmol/L (3.5-5.1); Sodium 139 mmol/L (137-145)
--- NOTE | 2019-03-25 18:26 | CT ---
EXAMINATION TYPE: CT angio head neck with contrast and with 3-D reconstruction renderings DATE OF EXAM: 03/25/2019 HISTORY: Right sided neck pain, chest pain and lightheadedness. COMPARISON: None CT DLP: 510.2 mGycm. Automated Exposure Control for Dose Reduction was Utilized. TECHNIQUE: CTA scan of the neck is performed with IV Contrast, patient injected with 50 mL of Isovue 370, axial images are obtained, coronal and sagittal reformatted images are reviewed. Three-D recons tructed images are created on an independent workstation and reviewed. FINDINGS: The bilateral carotid arterial systems are widely patent without narrowing, intimal flap, s tenosis, or aneurysm. The intracranial anterior arterial systems are widely patent without pathology. The bilateral vertebral arterial systems are widely patent without narrowing, intimal flap, stenosis, or aneurysm. The intracranial posterior arterial systems are widely patent without pathology. The venous structures of the neck and the intracranial dural venous sinuses are unremarkable. No incidental soft tissue or skeletal neck findings. No incidental cranial or intracranial findings. IMPRESSION: No significant abnormality is seen.
[2019-03-25] MEDS ORDERED: ONDANSETRON 4 MG/2 ML VIAL IVP PRN (18:58)
[2019-03-25] MEDS ORDERED: NALOXONE 0.4 MG/ML 1 ML VIAL IV PRN (18:58)
[2019-03-25] MEDS ORDERED: SODIUM CHLORIDE 0.9% 1,000 ML IV SCH (19:00)
[2019-03-25] MEDS ORDERED: MAG HYDROX/AL HYDROX/SIMETH 30 ML, HYOSCYAMINE ELIXIR 10 ML, CIMETIDINE HCL 300 MG, LID... PO STA ×4 (19:01)
[2019-03-25 20:26] VITALS: BMI 31.6
[2019-03-25] MEDS ORDERED: ALPRAZolam 0.25 MG TAB PO PRN (20:33)
[2019-03-25] MEDS: ACETAMINOPHEN TAB 325 MG TAB PO PRN (20:46)
[2019-03-25 23:04] LABS: INR 0.9 (<1.2); Partial Thromboplastin Time 27.7 sec (22.0-30.0)
[2019-03-26 05:12] VITALS: RESP 16
[2019-03-26] MEDS ORDERED: LEVOTHYROXINE 25 MCG TAB PO SCH (06:30)
[2019-03-26 06:43] LABS: Basophils % (A) 0 %; Eosinophils % (A) 0 %; HCT 39.7 % (34.0-46.0); HGB 13.1 gm/dL (11.4-16.0); Lymphocytes # (A) 0.6 k/uL (1.0-4.8); Lymphocytes % (A) 5 %; MCH 30.7 pg (25.0-35.0); Mean Platelet Volume 6.7; Monocytes # (A) 0.1 k/uL (0-1.0); Monocytes % (A) 1 %; Neutrophils # (A) 11.7 k/uL (1.3-7.7); Neutrophils % (A) 94 %; Platelet Count 265 k/uL (150-450); RBC 4.26 m/uL (3.80-5.40); RDW 13.2 % (11.5-15.5); WBC 12.5 k/uL (3.8-10.6)
[2019-03-26 07:16] LABS: ALT 18 U/L (9-52); AST 15 U/L (14-36); African American GFR (CKD) >90 (>60 ml/min/1.73 sqM); Albumin 4.5 g/dL (3.5-5.0); Alkaline Phosphatase 54 U/L (38-126); Anion Gap 9 mmol/L; Blood Urea Nitrogen 9 mg/dL (7-17); Calcium 9.5 mg/dL (8.4-10.2); Carbon Dioxide 24 mmol/L (22-30); Chloride 106 mmol/L (98-107); Glucose 116 mg/dL (74-99); Potassium 4.5 mmol/L (3.5-5.1); Sodium 139 mmol/L (137-145); Total Bilirubin 0.7 mg/dL (0.2-1.3); Total Protein 6.9 g/dL (6.3-8.2)
[2019-03-26] MEDS ORDERED: PANTOPRAZOLE 40 MG TABLET PO SCH (07:30)
[2019-03-26 08:32] VITALS: PULSE 80
[2019-03-26] MEDS ORDERED: NON-FORMULARY DRUG (Omeprazole [Omeprazole] 40 MG) PO SCH (09:00)
[2019-03-26] MEDS ORDERED: LISINOPRIL 5 MG TAB PO SCH (09:00)
[2019-03-26] MEDS ORDERED: LORATADINE 10 MG TAB PO SCH (09:00)
--- NOTE | 2019-03-26 09:10 | P.CRDCN ---
History of Present Illness Consult date: 03/26/19 History of present illness: This is a 43-year-old female with history of hypertension and also hypothyroidism who was in the hospital recently with pain in her legs and not feeling well. She was seen in the emergency room and was subsequently seen by family physician. She was advised to see a neurologist for further evaluation of symptoms. She now comes to the hospital with complaints of fever, brief and sharp pains in the right side of the neck radiating to the head causing dizziness. Subsequent a she may have some feeling in the chest. These brief episodes happen to 3 times yesterday and then couple of times after coming here. She was concerned that she may have some blockages of clot. Patient had a computed tomography scan of the neck which did not reveal any abnormalities. From cardiac standpoint, her EKGs and cardiac enzymes are negative. Her pains appear to be atypical. I'm going to get an echocardiogram. If that is normal, patient activity could be increased. From Cardec standpoint, she could be discharged home to have an outpatient stress test. Patient may also require some neurological evaluation Review of Systems As per the chart Past Medical History Past Medical History: Hyperlipidemia, Hypertension, Thyroid Disorder Additional Past Medical History / Comment(s): CVID, reynaud's, nessa's, meniere's History of Any Multi-Drug Resistant Organisms: None Reported Past Surgical History: Appendectomy, Uterine Ablation Past Anesthesia/Blood Transfusion Reactions: No Reported Reaction Past Psychological History: Anxiety Smoking Status: Never smoker Past Alcohol Use History: Occasional Past Drug Use History: None Reported Medications and Allergies Home Medications Medication Instructions Recorded Confirmed Type Lisinopril [Zestril] 5 mg PO DAILY 11/24/17 03/25/19 History ALPRAZolam [Xanax] 0.25 mg PO BID PRN 03/25/19 03/25/19 History Levocetirizine Dihydrochloride 5 mg PO DAILY 03/25/19 03/25/19 History [Xyzal] Levothyroxine Sodium 25 mcg PO DAILY 03/25/19 03/25/19 History Meclizine [Antivert] 25 mg PO TID PRN 03/25/19 03/25/19 History Omeprazole 40 mg PO DAILY 03/25/19 03/25/19 History Allergies Allergy/AdvReac Type Severity Reaction Status Date / Time amoxicillin Allergy Rash/Hives Verified 03/25/19 20:28 clavulanic acid Allergy Rash/Hives Verified 03/25/19 20:28 [From Augmentin] doxycycline Allergy Rash/Hives Verified 03/25/19 20:28 Iodinated Contrast- Oral and Allergy Dyspnea Verified 03/25/19 20:28 IV Dye Physical Exam Vitals: Vital Signs Temp Pulse Pulse Pulse Pulse Resp BP 03/26/19 08:00 98.1 F 80 16 03/26/19 04:07 98.0 F 64 16 03/26/19 00:00 98.0 F 68 15 03/25/19 20:00 98.2 F 76 15 03/25/19 19:38 98.6 F 80 18 132/82 03/25/19 17:05 94 03/25/19 16:29 97.4 F L 114 H 20 149/87 BP BP Pulse Ox 03/26/19 08:00 119/75 97 03/26/19 04:07 104/66 97 03/26/19 00:00 112/72 97 03/25/19 20:00 110/76 96 03/25/19 19:38 97 03/25/19 17:05 03/25/19 16:29 99 Intake and Output 03/25/19 03/26/19 03/26/19 22:59 06:59 14:59 Other: # Voids 1 1 Weight 86.183 kg GENERAL EXAM: Patient is alert and oriented and doesn't appear to be in any acute distress HEENT: Normocephalic. Normal reaction of pupils, equal size, normal range of extraocular motion. No erythema or exudates in the throat. NECK: No masses, no nuchal rigidity. CHEST: No chest wall deformity. LUNGS: [Equal air entry with no crackles or wheeze.] HEART: [S1 and S2 normal with no audible mumurs or gallops. Regular rhythm, femorals equal on both sides..] ABDOMEN: No hepatosplenomegaly, normal bowel sounds, no guarding or rigidity. SKIN: No rashes CENTRAL NERVOUS SYSTEM: No focal deficits. EXTREMITIES: [No cyanosis, clubbing or edema.] Results 03/26/19 06:08 03/26/19 06:08 Cardiac Enzymes 03/25/19 03/26/19 03/26/19 Range/Units 17:22 00:49 06:08 AST 15 (14-36) U/L Troponin I <0.012 <0.012 (0.000-0.034) ng/mL 03/26/19 Range/Units 06:08 AST (14-36) U/L Troponin I <0.012 (0.000-0.034) ng/mL Coagulation 03/25/19 Range/Units 17:22 PT 10.0 (9.0-12.0) sec APTT 27.7 (22.0-30.0) sec CBC 03/25/19 03/26/19 Range/Units 17:22 06:08 WBC 8.4 12.5 H (3.8-10.6) k/uL RBC 4.17 4.26 (3.80-5.40) m/uL Hgb 12.9 13.1 (11.4-16.0) gm/dL Hct 38.4 39.7 (34.0-46.0) % Plt Count 248 265 (150-450) k/uL Comprehensive Metabolic Panel 03/25/19 03/26/19 Range/Units 17:22 06:08 Sodium 139 139 (137-145) mmol/L Potassium 3.5 4.5 (3.5-5.1) mmol/L Chloride 106 106 (98-107) mmol/L Carbon Dioxide 20 L 24 (22-30) mmol/L BUN 8 9 (7-17) mg/dL Creatinine 0.70 0.76 (0.52-1.04) mg/dL Glucose 92 116 H (74-99) mg/dL Calcium 9.7 9.5 (8.4-10.2) mg/dL AST 15 (14-36) U/L ALT 18 (9-52) U/L Alkaline Phosphatase 54 (38-126) U/L Total Protein 6.9 (6.3-8.2) g/dL Albumin 4.5 (3.5-5.0) g/dL Current Medications Generic Name Dose Route Start Last Admin Trade Name Freq PRN Reason Stop Dose Admin Acetaminophen 650 mg 03/25/19 18:58 03/25/19 20:46 Tylenol Tab PO 650 mg Q6HR PRN Administration Mild Pain or Fever > 100.5 Alprazolam 0.25 mg 03/25/19 20:33 Xanax PO BID PRN Anxiety Sodium Chloride 1,000 mls @ 80 mls/hr 03/25/19 19:00 03/26/19 01:00 Saline 0.9% IV 80 mls/hr .[id number] NOAH Administration Levothyroxine Sodium 25 mcg 03/26/19 06:30 03/26/19 06:08 Synthroid PO 25 mcg DAILY@0630 ONAH Administration Lisinopril 5 mg 03/26/19 09:00 Zestril PO DAILY NOAH Loratadine 10 mg 03/26/19 09:00 Claritin PO DAILY NOAH Naloxone HCl 0.2 mg 03/25/19 18:58 Narcan IV Q2M PRN Opioid Reversal Ondansetron HCl 4 mg 03/25/19 18:58 Zofran IVP Q8HR PRN Nausea And Vomiting Pantoprazole Sodium 40 mg 03/26/19 07:30 Protonix PO AC-BID NOAH Intake and Output 03/25/19 03/26/19 03/26/19 22:59 06:59 14:59 Other: # Voids 1 1 Weight 86.183 kg 03/26/19 06:08 03/26/19 06:08 EKG Interpretations (text) Sinus rhythm Assessment and Plan (1) Hypertension Current Visit: Yes Status: Acute Code(s): I10 - ESSENTIAL (PRIMARY) HYPERTENSION SNOMED Code(s): 11540707 (2) Neck strain Current Visit: Yes Status: Acute Code(s): S16.1XXA - STRAIN OF MUSCLE, FASCIA AND TENDON AT NECK LEVEL, INIT SNOMED Code(s): 947906125 (3) Generalized pain Current Visit: No Status: Acute Code(s): R52 - PAIN, UNSPECIFIED SNOMED Code(s): 10061958 (4) Hyperlipidemia Current Visit: Yes Status: Acute Code(s): E78.5 - HYPERLIPIDEMIA, UNSPECIFIED SNOMED Code(s): 48196285 Plan: We'll get an echocardiogram. If that appears to be normal, patient could be discharged home. Outpatient stress test could be arranged
[2019-03-26] MEDS: ACETAMINOPHEN TAB 325 MG TAB PO PRN (12:07)
[2019-03-26 12:21] VITALS: BP 106/72; TEMP 98.2
--- NOTE | 2019-03-26 17:36 | ECHOF ---
Referral Reason:Chest pain and cardiomyopathy MEASUREMENTS -------- HEIGHT: 165.1 cm WEIGHT: 86.2 kg BP: IVSd: 0.9 cm (0.6 - 1.1) LVIDd: 4.0 cm (3.9 - 5.3) LVPWd: 1.2 cm (0.6 - 1.1) EDV(Teich): 70 ml IVSs: 1.6 cm LVIDs: 2.0 cm LVPWs: 2.0 cm %IVS Thck: 71 % ESV(Teich): 13 ml EF(Teich): 81 % %FS: 50 % SV(Teich): 57 ml RVIDd: 3.1 cm (< 3.3) IVC: 15.69 mm LALs A4C: 4.5 cm LAAs A4C: 13.1 cm LAESV A-L A4C: 33 ml LAESV MOD A4C: 31 ml LALs A2C: 4.5 cm LAAs A2C: 11.3 cm LAESV A-L A2C: 24 ml LAESV MOD A2C: 22 ml LAESV(A-L): 28 ml LAESV Index (A-L): 14.55 ml/m Ao Diam: 2.9 cm (2.0 - 3.7) LA Diam: 3.1 cm (2.7 - 3.8) AV Cusp: 2.4 cm (1.5 - 2.6) EPSS: 0.5 cm MV E Ryan: 0.85 m/s MV DecT: 221 ms MV Dec [place]: 3.8 m/s MV A Ryan: 0.91 m/s MV E/A Ratio: 0.94 MV PHT: 64 ms MR Vmax: 1.38 m/s MR maxP.60 mmHg AV Vmax: 1.13 m/s AV maxP.09 mmHg TR Vmax: 1.67 m/s TR maxP.19 mmHg RAP: 5.00 mmHg RVSP: 16.19 mmHg MV EF SLOPE: 134.97 mm/s (70 - 150) MV EXCURSION: 17.35 mm (> 18.000) FINDINGS -------- Sinus rhythm. This was a technically good study. The left ventricular size is normal. There is borderline concentric left ventricular hypertrophy. Overall left ventricular systolic function is normal with, an EF between 55 - 60 %. The right ventricle is normal in size. The left atrial size is normal. Normal LA size by volume 22+/-6 ml/m2. The right atrial size is normal. Interatrial and interventricular septum intact. The aortic valve is trileaflet and appears structurally normal. The mitral valve leaflets are mildly thickened. There is trace mitral regurgitation. Trace tricuspid regurgitation present. There is no evidence of pulmonary hypertension. The right ventricular systolic pressure, as measured by Doppler, is 16.19mmHg. Pulmonic valve appears structurally normal. The aortic root size is normal. Normal inferior vena cava with normal inspiratory collapse consistent with estimated right atrial pre ssure of 5 mmHg. There is no pericardial effusion. CONCLUSIONS -------- 1. Sinus rhythm. 2. This was a technically good study. 3. The left ventricular size is normal. 4. There is borderline concentric left ventricular hypertrophy. 5. Overall left ventricular systolic function is normal with, an EF between 55 - 60 %. 6. The right ventricle is normal in size. 7. The left atrial size is normal. 8. Normal LA size by volume 22+/-6 ml/m2. 9. The right atrial size is normal. 10. Interatrial and interventricular septum intact. 11. The aortic valve is trileaflet and appears structurally normal. 12. The mitral valve leaflets are mildly thickened. 13. There is trace mitral regurgitation. 14. Trace tricuspid regurgitation present. 15. There is no evidence of pulmonary hypertension. 16. The right ventricular systolic pressure, as measured by Doppler, is 16.19mmHg. 17. Pulmonic valve appears structurally normal. 18. The aortic root size is normal. 19. Normal inferior vena cava with normal inspiratory collapse consistent with estimated right atrial pressure of 5 mmHg. 20. There is no pericardial effusion. SHIRT FOLDING MACHINE OPERATOR: Deborah Beverly RDCS
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
== END 2019-03-26 15:09 | disposition home or self-care (01) ==
LOC: EC 16:25 → 1SOBS 18:58
PROVIDERS: ADMIT Internal Medicine; ATTEND Internal Medicine
DX: S16.1XXA Strain of muscle, fascia and tendon at neck level, initial encounter (principal); R42 Dizziness and giddiness; R07.9 Chest pain, unspecified; R10.13 Epigastric pain; R10.10 Upper abdominal pain, unspecified; R10.30 Lower abdominal pain, unspecified; I10 Essential (primary) hypertension; E06.3 Autoimmune thyroiditis; E78.5 Hyperlipidemia, unspecified; F41.9 Anxiety disorder, unspecified; Z87.828 Personal history of other (healed) physical injury and trauma; R55 Syncope and collapse; R23.2 Flushing; R19.7 Diarrhea, unspecified; D83.9 Common variable immunodeficiency, unspecified; M79.605 Pain in left leg; M79.604 Pain in right leg; R50.9 Fever, unspecified; E66.9 Obesity, unspecified; Z68.31 Body mass index [BMI] 31.0-31.9, adult; M50.30 Other cervical disc degeneration, unspecified cervical region; I73.00 Raynaud's syndrome without gangrene; H81.09 Meniere's disease, unspecified ear; Z79.899 Other long term (current) drug therapy; Z79.890 Hormone replacement therapy; Z88.0 Allergy status to penicillin; Z88.1 Allergy status to other antibiotic agents; Z91.041 Radiographic dye allergy status; Z87.891 Personal history of nicotine dependence
CPT/HCPCS: 36415; 70496; 70498; 80048; 80053; 83735; 84484; 85025; 85610; 85730; 93005; 93306; 96374; 96375; 99285

== ENCOUNTER → 2020-06-06 | Outpatient (CLI) | payer MEDICAID ==
--- NOTE | 2020-06-06 13:33 | MM ---
Reason for exam: screening (asymptomatic). Last mammogram was performed 1 year and 9 months ago. Physical Findings: A clinical breast exam by your physician is recommended on an annual basis and results should be correlated with mammographic findings. MG 3D Screening Mammo W/Cad Bilateral CC and MLO view(s) were taken. Prior study comparison: September 11, 2018, mammogram, performed at [facility]. July 07, 2017, mammogram, performed at [facility]. May 27, 2016, mammogram, performed at [facility]. March 14, 2015, mammogram, performed at [facility]. January 24, 2014, mammogram, performed at [facility]. The breast tissue is extremely dense which could obscure a lesion on mammography. There is chronic nodularity in the left breast posterior CC view. No significant changes when compared with prior studies. ASSESSMENT: Benign, BI-RAD 2 RECOMMENDATION: Routine screening mammogram of both breasts in 1 year.
== END | disposition home or self-care (01) ==
LOC: RADMAMWWP 06:57
PROVIDERS: ATTEND Obstetrics & Gynecology
DX: Z12.31 Encounter for screening mammogram for malignant neoplasm of breast (principal)
CPT/HCPCS: 77063; 77067

== ENCOUNTER → 2021-01-24 | Outpatient (CLI) | payer MEDICAID ==
--- NOTE | 2021-01-24 12:50 | XR ---
EXAMINATION TYPE: XR knee complete RT DATE OF EXAM: 01/24/2021 CLINICAL HISTORY: Shooting pain. TECHNIQUE: Three views of the right knee are obtained. COMPARISON: None. FINDINGS: There is no acute fracture/dislocation evident in right knee. Mild tricompartment joint sp markus loss. No significant spurring. The overlying soft tissue appears unremarkable. IMPRESSION: As above.
--- NOTE | 2021-01-24 12:51 | XR ---
EXAMINATION TYPE: XR ankle complete RT DATE OF EXAM: 01/24/2021 CLINICAL HISTORY: Pain. TECHNIQUE: Frontal, lateral and oblique images of the right ankle are obtained. COMPARISON: None. FINDINGS: There is no acute fracture/dislocation evident in the right ankle. The ankle mortise appe ars within normal limits. The overlying soft tissue appears unremarkable. IMPRESSION: Unremarkable study.
== END | disposition home or self-care (01) ==
LOC: LABWHC1 11:19
PROVIDERS: ATTEND Family Medicine
DX: M25.861 Other specified joint disorders, right knee (principal)
CPT/HCPCS: 36415; 85379

== ENCOUNTER → 2021-05-21 | Outpatient (CLI) | payer MEDICAID ==
--- NOTE | 2021-05-21 08:46 | XR ---
EXAMINATION TYPE: XR foot complete LT DATE OF EXAM: 05/21/2021 COMPARISON: None HISTORY: Pain, injury TECHNIQUE: 3 view left foot FINDINGS: No acute fractures or dislocations are evident. Joint spaces are preserved. May be some mil d soft tissue swelling over the distal dorsal foot. There may be some soft tissue swelling over the s econd through fifth digits. Follow up exams can be performed 7-10 days from acute trauma for continued pain. IMPRESSION: 1. No acute osseous abnormality. 2. Soft tissue swelling distal foot
--- NOTE | 2021-05-21 08:48 | XR ---
EXAMINATION TYPE: XR ankle complete LT DATE OF EXAM: 05/21/2021 COMPARISON: None HISTORY: Fall, pain TECHNIQUE: 3 view left ankle FINDINGS: Ankle mortise is intact. No acute fracture or dislocation is evident. Soft tissues appear n ormal. Follow up exams can be performed 7-10 days from acute trauma for continued pain IMPRESSION: 1. Normal three-view left ankle
== END | disposition home or self-care (01) ==
LOC: RADXRMAIN 07:43
PROVIDERS: ATTEND Family Medicine
DX: M79.89 Other specified soft tissue disorders (principal); M25.572 Pain in left ankle and joints of left foot

== ENCOUNTER → 2021-07-06 | Outpatient (CLI) | payer MEDICAID ==
[2021-07-06 17:17] LABS: African American GFR (CKD) 87.6 (60.0-200.0); Anion Gap 5.7 mmol/L (4.00-12.00); BUN/Creat Ratio 18.89 Ratio (12.00-20.00); Calcium 9.6 mg/dL (8.7-10.3); Carbon Dioxide 30.3 mmol/L (21.6-31.8); Chol/HDL Ratio 3.32; LDL Cholesterol,Calculated 139.2 mg/dL (0.0-131.0); Non-African American GFR(CKD) 75.6 (60.0-200.0); Potassium 4.3 mmol/L (3.5-5.5); VLDL Calculation 18.8 mg/dL (5.00-40.00)
== END | disposition home or self-care (01) ==
LOC: LABWHC1 08:58
PROVIDERS: ATTEND Internal Medicine Endocrinology, Diabetes & Metabolism
DX: E55.9 Vitamin D deficiency, unspecified (principal); E78.5 Hyperlipidemia, unspecified; E03.9 Hypothyroidism, unspecified
CPT/HCPCS: 36415; 80048; 80061; 82306; 82607; 84439; 84443; 84480; 86376

== ENCOUNTER → 2021-09-04 | Outpatient (CLI) | payer MEDICAID ==
--- NOTE | 2021-09-09 11:31 | MM ---
Reason for exam: screening (asymptomatic). Last mammogram was performed 1 year and 3 months ago. Physical Findings: A clinical breast exam by your physician is recommended on an annual basis and results should be correlated with mammographic findings. MG 3D Screening Mammo W/Cad Bilateral CC and MLO view(s) were taken. Prior study comparison: June 06, 2020, bilateral MG 3d screening mammo w/cad. September 11, 2018, mammogram, performed at [facility]. The breast tissue is heterogeneously dense. This may lower the sensitivity of mammography. There are benign appearing round calcifications bilaterally. There is no discrete abnormality. ASSESSMENT: Benign, BI-RAD 2 RECOMMENDATION: Routine screening mammogram of both breasts in 1 year.
== END | disposition home or self-care (01) ==
LOC: RADMAMWWP 15:57
PROVIDERS: ATTEND Obstetrics & Gynecology
DX: Z12.31 Encounter for screening mammogram for malignant neoplasm of breast (principal)
CPT/HCPCS: 77063; 77067

== ENCOUNTER → 2022-04-18 | Outpatient (CLI) | payer MEDICAID ==
--- NOTE | 2022-04-19 06:33 | XR ---
EXAMINATION TYPE: XR ankle complete RT, XR foot complete RT DATE OF EXAM: 04/18/2022 CLINICAL HISTORY: Pain after injury. TECHNIQUE: Frontal, lateral and oblique images of the right ankle and foot are obtained. COMPARISON: Prior right ankle x-ray January 24, 2021. FINDINGS: There is no acute fracture/dislocation evident in the right ankle. The ankle mortise appe ars within normal limits. The overlying soft tissue appears unremarkable. There is no acute fracture or dislocation evident in the right foot. Flexion and varus positioning d istal fifth toe. The joint spaces in the right foot are preserved. Overlying soft tissue is unremark able. IMPRESSION: There is no acute fracture or dislocation in the right ankle or foot.
== END | disposition home or self-care (01) ==
LOC: RADXRMAIN 17:26
PROVIDERS: ATTEND Internal Medicine
DX: M25.571 Pain in right ankle and joints of right foot (principal)

== ENCOUNTER → 2022-05-14 | Outpatient (CLI) | payer MEDICAID ==
[2022-05-14 18:09] LABS: HCT 42.3 % (37.2-46.3); HGB 13.3 g/dL (12.0-15.0); MCH 29.7 pg (27.0-32.0); MCHC 31.4 g/dL (32.0-37.0); MCV 94.4 fL (80.0-97.0); Mean Platelet Volume 10.3 fL (9.5-12.2); NRBC Per 100 WBC 0 /100 WBCS (0.0-0.0); Platelet Count 234 X 10*3/uL (140-440); RBC 4.48 X 10*6/uL (4.10-5.20); RDW 13.5 % (11.5-14.5); WBC 6.35 X 10*3/uL (4.50-10.00)
[2022-05-14 18:36] LABS: African American GFR (CKD) 100.3 (60.0-200.0); Anion Gap 12.1 mmol/L (10.00-18.00); BUN/Creat Ratio 20.38 Ratio (12.00-20.00); Blood Urea Nitrogen 16.3 mg/dL (9.0-27.0); Calcium 9.4 mg/dL (8.7-10.3); Carbon Dioxide 26.9 mmol/L (20.0-27.5); Non-African American GFR(CKD) 86.6 (60.0-200.0); Potassium 3.9 mmol/L (3.5-5.5); T4, Free (Free Thyroxine) 0.9 ng/dL (0.800-1.800)
== END | disposition home or self-care (01) ==
LOC: LABWHC1 12:05
PROVIDERS: ATTEND Internal Medicine Endocrinology, Diabetes & Metabolism
DX: E03.9 Hypothyroidism, unspecified (principal); E55.9 Vitamin D deficiency, unspecified; E78.5 Hyperlipidemia, unspecified
CPT/HCPCS: 36415; 80048; 82306; 82607; 84439; 84443; 84481; 85027; 86376

== ENCOUNTER → 2022-08-06 | Outpatient (CLI) | payer MEDICAID ==
[2022-08-06 11:32] LABS: Basophils # (A) 0.04 X 10*3/uL (0.00-0.10); Basophils % (A) 0.8 %; Eosinophils # (A) 0.18 X 10*3/uL (0.04-0.35); Eosinophils % (A) 3.4 %; HGB 12.8 g/dL (12.0-15.0); Immature Grans, Automated 0.6 %; Lymphocytes # (A) 1.54 X 10*3/uL (0.90-5.00); Lymphocytes % (A) 29.3 %; MCH 30.5 pg (27.0-32.0); MCHC 33.7 g/dL (32.0-37.0); MCV 90.5 fL (80.0-97.0); Mean Platelet Volume 9.9 fL (9.5-12.2); Monocytes # (A) 0.45 X 10*3/uL (0.20-1.00); Monocytes % (A) 8.6 %; NRBC Per 100 WBC 0 /100 WBCS (0.0-0.0); Neutrophils # (A) 3.02 X 10*3/uL (1.80-7.70); Neutrophils % (A) 57.3 %; Platelet Count 208 X 10*3/uL (140-440); RDW 12.9 % (11.5-14.5); WBC 5.26 X 10*3/uL (4.50-10.00)
[2022-08-06 11:48] LABS: ALT 16 U/L (8-44); AST 21 U/L (13-35); African American GFR (CKD) 100.3 (60.0-200.0); Blood Urea Nitrogen 14.1 mg/dL (9.0-27.0); Chol/HDL Ratio 4.43 Ratio; LDL Cholesterol,Calculated 158.3 mg/dL (0.0-131.0); Non-African American GFR(CKD) 86.6 (60.0-200.0); VLDL Calculation 17.54 mg/dL (5.00-40.00)
== END | disposition home or self-care (01) ==
LOC: LABWHC1 07:10
PROVIDERS: ATTEND Internal Medicine Endocrinology, Diabetes & Metabolism
DX: E66.9 Obesity, unspecified (principal); E55.9 Vitamin D deficiency, unspecified; L65.0 Telogen effluvium
CPT/HCPCS: 36415; 80061; 82306; 82565; 82607; 84439; 84443; 84450; 84460; 84481; 84520; 85025; 86376

== ENCOUNTER → 2022-11-10 | Outpatient (CLI) | payer MEDICAID ==
--- NOTE | 2022-11-10 08:36 | MM ---
Reason for Exam: Screening (asymptomatic). Last mammogram was performed 1 year(s) and 2 month(s) ago. Patient History: Menarche at age 10. First Full-Term at age 19. Patient has history of breast feeding. Risk Values: Kelsey 5 year model risk: 0.8%. NCI Lifetime model risk: 8.2%. Prior Study Comparison: 05/27/2016 Screening Mammogram, [facility]. 07/07/2017 Screening Mammogram, [facility]. 09/11/2018 Screening Mammogram, [facility]. 06/06/2020 Bilateral Screening Mammogram, [facility]. 09/04/2021 Bilateral Screening Mammogram, [facility]. Tissue Density: The breast tissue is heterogeneously dense. This may lower the sensitivity of mammography. Findings: Analyzed By CAD. There is no suspicious new group of microcalcifications or new suspicious mass in either breast. Overall Assessment: Negative, BI-RAD 1 Management: Screening Mammogram of both breasts in 1 year. Some advise bilateral breast ultrasound surveillance in patient with background dense tissue. A clinical breast exam by your physician is recommended on an annual basis and results should be correlated with mammographic findings. Electronically signed and approved by: David Viveros M.D.
== END | disposition home or self-care (01) ==
LOC: RADMAMWWP 06:54
PROVIDERS: ATTEND Obstetrics & Gynecology
DX: Z12.31 Encounter for screening mammogram for malignant neoplasm of breast (principal)
CPT/HCPCS: 77063; 77067

== ENCOUNTER → 2023-01-17 | Outpatient (CLI) | payer MEDICAID ==
[2023-01-17 22:38] LABS: Basophils # (A) 0.05 X 10*3/uL (0.00-0.10); Basophils % (A) 0.9 %; Eosinophils # (A) 0.14 X 10*3/uL (0.04-0.35); Eosinophils % (A) 2.5 %; HCT 39.2 % (37.2-46.3); Immature Grans, Automated 0.2 %; Lymphocytes % (A) 26.5 %; MCH 30.6 pg (27.0-32.0); MCHC 33.2 g/dL (32.0-37.0); MCV 92.2 fL (80.0-97.0); Mean Platelet Volume 9.8 fL (9.5-12.2); Monocytes # (A) 0.49 X 10*3/uL (0.20-1.00); Monocytes % (A) 8.7 %; NRBC Per 100 WBC 0 /100 WBCS (0.0-0.0); Neutrophils # (A) 3.47 X 10*3/uL (1.80-7.70); Neutrophils % (A) 61.2 %; Platelet Count 210 X 10*3/uL (140-440); RBC 4.25 X 10*6/uL (4.10-5.20); RDW 13.2 % (11.5-14.5); WBC 5.66 X 10*3/uL (4.50-10.00)
[2023-01-17 23:19] LABS: ALT 65 U/L (8-44); AST 22 U/L (13-35); Albumin 4.8 g/dL (3.8-4.9); Albumin/Globulin Ratio 2.29 (1.60-3.17); Alkaline Phosphatase 92 U/L (41-126); BUN/Creat Ratio 23.44 Ratio (12.00-20.00); Blood Urea Nitrogen 21.1 mg/dL (9.0-27.0); Calcium 10.1 mg/dL (8.7-10.3); Carbon Dioxide 28.7 mmol/L (20.0-27.5); Chloride 97 mmol/L (96-109); Chol/HDL Ratio 3.44 Ratio; Globulin 2.1 g/dL (1.6-3.3); Glucose 91 mg/dL (70-110); Magnesium 1.9 mg/dL (1.5-2.4); Non-African American GFR(CKD) 75.1 (60.0-200.0); Potassium 3.7 mmol/L (3.5-5.5); Sodium 137 mmol/L (135-145); Total Protein 6.9 g/dL (6.2-8.2); VLDL Calculation 16.92 mg/dL (5.00-40.00)
== END | disposition home or self-care (01) ==
LOC: LABWHC1 11:40
PROVIDERS: ATTEND Internal Medicine
DX: Z00.00 Encounter for general adult medical examination without abnormal findings (principal); E03.9 Hypothyroidism, unspecified; E78.5 Hyperlipidemia, unspecified
CPT/HCPCS: 36415; 80053; 80061; 82306; 82607; 83735; 84439; 84443; 84480; 85025

== ENCOUNTER → 2023-01-30 | Outpatient (CLI) | payer MEDICAID ==
--- NOTE | 2023-01-30 11:01 | US ---
EXAMINATION TYPE: US liver DATE OF EXAM: 01/30/2023 COMPARISON: NONE CLINICAL INDICATION: Female, 47 years old with history of R74.01 ELEVATED ALT; Follow up hepatic cyst TECHNIQUE: Multiple sonographic images of the right upper quadrant are obtained. FINDINGS: EXAM MEASUREMENTS: Liver Length: 12.4 cm Gallbladder Wall: 0.1 cm CBD: 0.4 cm Right Kidney: 10.4 x 4.7 x 4.3 cm Pancreas: visualized portions appear wnl Liver: cystic area = 1. 6 x 1.3 x 1.8cm Gallbladder: no evidence of stones Evidence for sonographic Hernandez's sign: no CBD: appears wnl Right Kidney: no evidence of hydronephrosis IMPRESSION: 1. Small hepatic cyst. This cannot be completely confirmed as simple. Monitoring is recommended.
== END | disposition home or self-care (01) ==
LOC: RADUSWWP 09:18
PROVIDERS: ATTEND Internal Medicine
DX: K76.89 Other specified diseases of liver (principal); R74.01 Elevation of levels of liver transaminase levels
CPT/HCPCS: 76705

== ENCOUNTER → 2023-02-11 | Outpatient (CLI) | payer MEDICAID ==
--- NOTE | 2023-02-11 16:22 | CT ---
EXAMINATION TYPE: CT abdomen wo/w con DATE OF EXAM: 02/11/2023 COMPARISON: Liver ultrasound January 30, 2023 HISTORY: LIVER CYST. HEMANGIOMA PROTOCOL. . Abnormal ultrasound. CT DLP: 6.60 mGycm Automated exposure control for dose reduction was used. TECHNIQUE: Helical acquisition of images was performed from the lung bases through the top of iliac crest to include entire abdomen. CONTRAST: Performed without Oral Contrast and without and with IV Contrast, patient injected with 100 mL of Iso trice 300. FINDINGS: LUNG BASES: No significant abnormality is appreciated. LIVER/GB: In the posterior right hepatic dome there is 1.6 x 1.2 cm nonenhancing oval hypodense lesio n consistent with fine thin wall cyst corresponding to area of concern on recent ultrasound. Remainde r of liver shows no suspicious solid or cystic mass. No biliary dilatation is evident. PANCREAS: No significant abnormality is seen. SPLEEN: No significant abnormality is seen. ADRENALS: No significant abnormality is seen. KIDNEYS: No significant abnormality is seen. BOWEL: No significant abnormality is seen. LYMPH NODES: No significant abnormality is seen. OSSEOUS STRUCTURES: There is a sacralized L5 vertebra noted. FREE AIR: No free air is visualized. OTHER: Tiny fat-containing umbilical hernia sagittal image 97 series 14. IMPRESSION: Confirmation of 1.6 cm simple thin-walled cyst posterior right hepatic dome. No worrisome intrahepatic masses.
== END | disposition home or self-care (01) ==
LOC: RADCTMAIN 15:23
PROVIDERS: ATTEND Internal Medicine
DX: K76.89 Other specified diseases of liver (principal)
CPT/HCPCS: 74170; Q9967

== ENCOUNTER → 2023-07-24 | Outpatient (CLI) | payer MEDICAID ==
--- NOTE | 2023-07-24 11:52 | US ---
EXAMINATION TYPE: US kidneys/renal and bladder DATE OF EXAM: 07/24/2023 COMPARISON: CT 02/11/23 CLINICAL INDICATION: Female, 48 years old with history of R30.0 DYSURIA; EXAM MEASUREMENTS: Right Kidney: 10.3 x 4.1 x 4.6 cm Left Kidney: 10.0 x 5.1 x 4.3 cm Post Void Residual Volume: 8 mL Right Kidney: wnl Left Kidney: wnl Bladder: wnl Bilateral Jets seen: no Normal Post Void Residual: yes There is no evidence for hydronephrosis at this point in time. No nephrolithiasis is seen. No janet s are identified. The urinary bladder is anechoic. Bilateral ureteral jets are seen. IMPRESSION: No significant abnormality seen.
== END | disposition home or self-care (01) ==
LOC: RADUSWWP 10:50
PROVIDERS: ATTEND Internal Medicine
DX: R30.0 Dysuria (principal)
CPT/HCPCS: 76770

== ENCOUNTER → 2023-11-03 | Outpatient (CLI) | payer MEDICAID ==
--- NOTE | 2023-11-03 17:42 | XR ---
EXAMINATION TYPE: XR elbow complete RT DATE OF EXAM: 11/03/2023 5:10 PM CLINICAL INDICATION:Female, 48 years old with history of M25.521PAIN IN RIGHT ELBOW; [facility] COMPARISON: None TECHNIQUE: XR elbow complete RT; elbow was examined in AP, lateral, and oblique projections. FINDINGS: No evidence of any acute osseous pathology, joint dislocation, or soft tissue swelling is n oted. No evidence of joint effusion is present. IMPRESSION: No evidence of acute fracture.
== END | disposition home or self-care (01) ==
LOC: RADXRMAIN 16:54
PROVIDERS: ATTEND Internal Medicine
DX: M25.521 Pain in right elbow (principal)

== ENCOUNTER → 2023-11-28 | Outpatient (CLI) | payer MEDICAID ==
--- NOTE | 2023-12-07 09:01 | MR ---
EXAMINATION TYPE: MR elbow RT wo con DATE OF EXAM: 11/28/2023 COMPARISON: Radiograph 11/03/2023 HISTORY: 48-year-old female M25.521, Right elbow pain, S/P fall 1 month ago. TECHNIQUE: Multiplanar, multisequence images of the right elbow were obtained without IV contrast. FINDINGS: The distal biceps tendon and triceps insertion are both intact. Physiologic elbow joint fluid. Radiocapitellar and ulnar trochlear joints appear intact. No acute or healing fracture is seen. There is some intermediate signal at the distal insertional fibers of the common extensor tendon orig in but without discrete tear. The underlying LCL and LUCL appear grossly intact. There is some fluid signal measuring 1.4 cm long and 0.6 cm wide within the adjacent pancreas muscle along the dorsal radial aspect of the distal elbow that could reflect a small intramuscular tear. The common flexor tendon origin pronator mass and the underlying UCL appear intact. No other significant soft tissue abnormality is seen. No suspicious bone marrow replacement. IMPRESSION: 1. Mild tendinosis at the common extensor tendon origin. 2. Adjacent 1.4 x 0.6 cm fluid signal within the pancreas muscle dorsal radial aspect of the lower el bow could represent a small intramuscular tear or ganglion cyst. 3. No acute or healing fracture is seen.
== END | disposition home or self-care (01) ==
LOC: RADMRIMAIN 08:25
PROVIDERS: ATTEND Internal Medicine
DX: M67.823 Other specified disorders of tendon, right elbow (principal)

== ENCOUNTER → 2024-04-07 | Outpatient (CLI) | payer MEDICAID ==
[2024-04-07 10:36] LABS: Basophils # (A) 0.03 X 10*3/uL (0.00-0.10); Basophils % (A) 0.6 %; Eosinophils # (A) 0.15 X 10*3/uL (0.04-0.35); HCT 40.7 % (37.2-46.3); HGB 12.9 g/dL (12.0-15.0); Lymphocytes # (A) 1.41 X 10*3/uL (0.90-5.00); Lymphocytes % (A) 28.3 %; MCH 29.7 pg (27.0-32.0); MCHC 31.7 g/dL (32.0-37.0); MCV 93.8 FL (80.0-97.0); Mean Platelet Volume 10.3 FL (9.5-12.2); NRBC Per 100 WBC 0 X 10*3/uL (0.00-0.01); Neutrophils # (A) 2.88 X 10*3/uL (1.80-7.70); Neutrophils % (A) 57.7 %; Platelet Count 222 X 10*3/uL (140-440); RBC 4.34 X 10*6/uL (4.10-5.20); RDW 12.7 % (11.5-14.5); WBC 4.99 X 10*3/uL (4.50-10.00)
[2024-04-07 15:12] LABS: ALT 33 U/L (8-44); AST 25 U/L (13-35); Albumin 4.6 g/dL (3.8-4.9); Alkaline Phosphatase 80 U/L (41-126); BUN/Creat Ratio 23.75 Ratio (12.00-20.00); Calcium 10.2 mg/dL (8.7-10.3); Carbon Dioxide 27.2 mmol/L (21.6-31.8); Chloride 102 mmol/L (96-109); Chol/HDL Ratio 3.52 Ratio; Glucose 101 mg/dL (70-110); LDL Cholesterol,Calculated 148.9 mg/dL (0.0-131.0); Magnesium 1.9 mg/dL (1.5-2.4); Potassium 4.3 mmol/L (3.5-5.5); Sodium 141 mmol/L (135-145); Total Bilirubin 0.3 mg/dL (0.3-1.2); Total Protein 6.6 g/dL (6.2-8.2); VLDL Calculation 19.34 mg/dL (5.00-40.00)
== END | disposition home or self-care (01) ==
LOC: LABWHC1 06:54
PROVIDERS: ATTEND Internal Medicine
DX: Z00.00 Encounter for general adult medical examination without abnormal findings (principal)
CPT/HCPCS: 36415; 80053; 80061; 83735; 84443; 85025

== ENCOUNTER 2024-07-20 06:07 | Day surgery (SDC) | payer MEDICAID ==
[2024-07-18 16:02] VITALS: BMI 34.9
[~2024-07-20 06:07] MED LIST: LACTATED RINGERS 1,000 ML IV SCH; LIDOCAINE 1% (10MG/ML) FOR IV START INTRADERMA PRN
[2024-07-20] MEDS: IV FLUID CONTINUATION 1,000 ML IV ONE (06:45)
[2024-07-20] MEDS ORDERED: PROPOFOL 10 MG/ML 20 ML VIAL IV ONE (07:06)
--- NOTE | 2024-07-20 07:27 | P.PCN ---
Date of Procedure: 07/20/24 Procedure(s) Performed: Brief history: Patient is a pleasant 49-year-old white female scheduled for an elective upper endoscopy as well as colonoscopy as a part of evaluation of GERD and screening for colon cancer Procedure performed: Esophagogastroduodenoscopy with biopsy Colonoscopy Preoperative diagnosis: GERD Screening for colon cancer Anesthesia: [facility] [place] Procedure: After informed consent was obtained from the patient was brought into the endoscopy unit and IV sedation was administered by anesthesia under continuous monitoring. Initially upper endoscopy was done. The Olympus GF 160 video endoscope was inserted inserted into the mouth and esophagus intubated without any difficulty and was gradually advanced into the stomach and duodenum and carefully examined. The bulb and second part of the duodenum appeared normal. The scope was then withdrawn into the stomach adequately insufflated with air and upon careful examination the antrum had mild gastritis and biopsies were done from this area. Multiple small gastric polyps noted in the gastric body which were biopsied. Rest of the body, cardia and fundus appeared normal. The scope was then withdrawn into the esophagus. The GE junction was located at 40 cm to the incisors. It appeared regular with no erythema erosions or ulcera tions. Rest of the esophagus appeared normal. Patient tolerated the procedure well. At this time the patient continued to remain sedation. Initial digital rectal examination was normal. Olympus CF 160 video colonoscope was then inserted into the rectum and gradually advanced to the cecum without any difficulty. Careful examination was performed as the scope was gradually being withdrawn. The prep was excellent. The cecum, ascending colon, transverse colon, descending colon, sigmoid colon and rectum appeared normal. Retroflexion was performed in the rectum and no lesions were noted. Patient tolerated the procedure well. Impression: 1. Upper endoscopy revealed mild antral gastritis and small gastric polyps but no evidence of esophagitis or Cancino's esophagus 2. Colonoscopy revealed scattered sigmoid diverticulosis but no evidence of colorectal neoplasia Recommendations: Findings of this examination were discussed with the patient as well as her family. She was advised to follow-up with the biopsy results. Continue with omeprazole 20 mg daily and follow antireflux measures. Recommended repeat screening colonoscopy in 10 years.
[2024-07-20 07:36] VITALS: RESP 18
[2024-07-20 07:49] VITALS: PULSE 60
[2024-07-20 07:53] VITALS: BP 112/60
== END 2024-07-20 08:11 | disposition home or self-care (01) ==
LOC: ORWHC2ENDO 06:07
PROVIDERS: ATTEND Internal Medicine Gastroenterology
DX: K31.7 Polyp of stomach and duodenum (principal); K21.9 Gastro-esophageal reflux disease without esophagitis
CPT/HCPCS: 43239; 45378; 88305

== ENCOUNTER 2024-12-29 16:54 | Emergency (ER) | payer MEDICAID ==
[2024-12-29 17:30] VITALS: RESP 18; TEMP 98.1
--- NOTE | 2024-12-29 17:48 | ED ---
Neck Injury/Pain HPI - General Chief Complaint: Neck Pain/Injury Stated Complaint: Fall-head injury Mode of arrival: ambulatory Limitations: no limitations - History of Present Illness Initial Comments: Patient is a 49-year-old female with hyperlipidemia, hypertension, GERD, history of Dhara's presented to the ED with persistent headache after a fall about a week ago. Patient said that she had a ground-level fall about a week ago in her driveway where she landed backwards and hit back of her head. Patient denied any palpitations, chest pain, diaphoresis prior to the fall. Did not pass out or lose consciousness during or after the fall. Since the incident, patient has been having a chronic dull pressure-like headache for the past week. She has tried taking some Tylenol with no relief. Patient visited her PCP today and was sent by her PCP to the ED for evaluation. Patient has been having some nausea but no vomiting. Denies any fever, chills, chest pain, shortness of breath, diarrhea, constipation, lower extremity swelling. - Related Data Home Medications Medication Instructions Recorded Confirmed lisinopriL [Zestril] 5 mg PO DAILY 11/24/17 07/20/24 Levocetirizine Dihydrochloride 5 mg PO DAILY 03/25/19 07/20/24 [Xyzal] Meclizine [Antivert] 25 mg PO TID PRN 03/25/19 07/20/24 Omeprazole 40 mg PO DAILY 03/25/19 07/20/24 Rosuvastatin Calcium [Crestor] 5 mg PO Q7D 07/18/24 07/20/24 Triamterene/Hydrochlorothiazid 1 each PO DAILY 07/18/24 07/20/24 [Triamterene-Hctz 37.5-25 mg Tb] Allergies Allergy/AdvReac Type Severity Reaction Status Date / Time amoxicillin Allergy Rash/Hives Verified 12/29/24 17:30 clavulanic acid Allergy Rash/Hives Verified 12/29/24 17:30 [From Augmentin] doxycycline Allergy Rash/Hives Verified 12/29/24 17:30 Iodinated Contrast Media Allergy Dyspnea Verified 12/29/24 17:30 [Iodinated Contrast- Oral and IV Dye] Review of Systems ROS Statement: Those systems with pertinent positive or pertinent negative responses have been documented in the HPI. ROS Other: All systems not noted in ROS Statement are negative. Constitutional: Denies: fever, chills Respiratory: Denies: cough, dyspnea Cardiovascular: Denies: chest pain, palpitations Gastrointestinal: Reports: nausea. Denies: abdominal pain, vomiting Genitourinary: Denies: urgency, dysuria Musculoskeletal: Reports: myalgia Neurological: Reports: headache Past Medical History Past Medical History: GERD/Reflux, GI Bleed, Hearing Disorder / Deafness, Hyperlipidemia, Hypertension, Thyroid Disorder Additional Past Medical History / Comment(s): Hard of hearing in right ear. 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 Hx GI bleed and SIBO in 2019, Raynaud's, Dhara's, Meniere's. History of Any Multi-Drug Resistant Organisms: None Reported Past Surgical History: Appendectomy, Uterine Ablation Past Anesthesia/Blood Transfusion Reactions: No Reported Reaction, Motion Sickne ss Additional Past Anesthesia/Blood Transfusion Reaction / Comment(s): Meniere's. Mom hard to put under. Past Psychological History: Anxiety Smoking Status: Former smoker Past Alcohol Use History: None Reported Past Drug Use History: None Reported - Past Family History Sister(s) Family Medical History: Deep Vein Thrombosis (DVT) General Exam - General Exam Comments Initial Comments: GENERAL: This is a 49-year-old in no apparent distress at the time of examination. Pleasant and cooperative. HEENT: Head is atraumatic, normocephalic. No lesions, lacerations noted on the scalp. RESPIRATORY: Clear to auscultation bilaterally. No wheezing, rales, rhonchi, stridor, crackles. CARDIOVASCULAR: Regular rate and rhythm. No systolic or diastolic murmur. GASTROINTESTINAL: No distention noted. Abdomen soft and round. No pain or tenderness noted upon palpation. INTEGUMENTARY: No cyanosis. No jaundice. No rashes noted. No cellulitis noted. EXTREMITIES: 2+ peripheral pulses. No evidence of peripheral edema. No calf tenderness noted. NEUROLOGIC: Cranial nerves II-XII intact. PSYCHIATRIC: Awake, alert, and oriented X 3. Appropriate affect. Intact judgement and insight. Limitations: no limitations Course Vital Signs 12/29/24 17:28 Temperature 98.1 F Pulse Rate 78 Respiratory 18 Rate Blood Pressure 166/98 O2 Sat by Pulse 100 Oximetry Medical Decision Making - Medical Decision Making Was pt. sent in by a medical professional or institution (GIANNI Rosa, ASSISTANT PROFESSOR OF GERMAN, urgent care, hospital, or retirement...) When possible be specific @ -Sent in by PCP Did you speak to anyone other than the patient for history (EMS, parent, family, police, friend...)? What history was obtained from this source @ -No Did you review nursing and triage notes (agree or disagree)? Why? @ -I reviewed and agree with nursing and triage notes Were old charts reviewed (outside hosp., previous admission, EMS record, old EKG, old radiological studies, urgent care reports/EKG's, retirement records)? Report findings @ -No old charts were reviewed Differential Diagnosis? @ -Fall, tension headache, migraines, stroke EKG interpreted by me (3pts min.). @ -As above X-rays interpreted by me (1pt min.). @ -None done CT interpreted by me (1pt min.). @ -There is no acute fracture or dislocation evident in the cervical spine. No acute intracranial hemorrhage, mass effect, or midline shift is seen U/S interpreted by me (1pt. min.). @ -None done What testing was considered but not performed or refused? (CT, X-rays, U/S, labs)? Why? @ -None What meds were considered but not given or refused? Why? @ -None Did you discuss the management of the patient with other professionals (professionals i.e. GIANNI Rosa, ASSISTANT PROFESSOR OF [employer]ERMAN, lab, RT, psych nurse, bilingual social worker, psychology intern, teacher, food safety officer, social work case manager)? Give summary @ -No Was smoking cessation discussed for >3mins.? @ -No Was critical care preformed (if so, how long)? @ -No Were there social determinants of health that impacted care today? How? (Homelessness, low income, unemployed, alcoholism, drug addiction, transportation, low edu. Level, literacy, decrease access to med. care, fpc, rehab)? @ -No Was there de-escalation of care discussed even if they declined (Discuss DNR or withdrawal of care, Hospice)? DNR status @ -No What co-morbidities impacted this encounter? (DM, HTN, Smoking, COPD, CAD, Cancer, CVA, ARF, Chemo, Hep., AIDS, mental health diagnosis, sleep apnea, morbid obesity)? @ -None Was patient admitted / discharged? Hospital course, mention meds given and route, prescriptions, significant lab abnormalities, going to OR and other pertinent info. @ -Patient is a 49-year-old female with hyperlipidemia, hypertension, GERD, Dhara's presented to the ED with neck pain this been going on for the past week after a fall in her driveway. CT of brain and cervical spine showed no acute fracture or dislocation and no acute intracranial hemorrhage. One-time Tylenol was given in the ED. Patient will be discharged advised symptomatic management with Tylenol and Motrin as needed. Undiagnosed new problem with uncertain prognosis? @ -No Drug Therapy requiring intensive monitoring for toxicity (Heparin, Nitro, Insulin, Cardizem)? @ -No Were any procedures done? @ -No Diagnosis/symptom? @ -Cervical strain after a fall Acute, or Chronic, or Acute on Chronic? @ -Chronic Uncomplicated (without systemic symptoms) or Complicated (systemic symptoms)? @ -Uncomplicated Side effects of treatment? @ -No Exacerbation, Progression, or Severe Exacerbation? @ -No Poses a threat to life or bodily function? How? (Chest pain, [place], [place], pneumonia, PE, COPD, DKA, ARF, appy, cholecystitis, CVA, Diverticulitis, Homicidal, Suicidal, threat to staff... and all critical care pts) @ -No Disposition Clinical Impression: Neck strain Narrative: Patient will be discharged back home. Advised symptomatic management for headache, cervical neck strain with Tylenol and Motrin as needed. Disposition: HOME SELF-CARE Condition: Stable Instructions (If sedation given, give patient instructions): Cervical Strain (ED) Additional Instructions: Every disease is a spectrum and a small chance still exists that a serious condition could develop, for this reason, please monitor yourself closely for new, changing or worsening symptoms, new confusion, changes in behavior, severe headache, changes in vision, numbness, weakness, chest pain, fever, inability to tolerate/keep down fluids or your medications, inability to follow up with outpatient providers as instructed and should you experience these symptoms or should you have any further concerns for your wellbeing please return to the ED or call 911 immediately. PLEASE call your primary care physician as soon as possible to arrange / discuss plan for followup appointment. Appointment in the next 1-3 days is strongly encouraged if possible. PLEASE let us know here before you leave if there is anything further we can do to be of any assistance. Take care and feel Better! Is patient prescribed a controlled substance at d/c from ED?: No Referrals: Pavan Sheehan DO [Primary Care Provider] - 1-2 days Time of Disposition: 19:20
--- NOTE | 2024-12-29 18:30 | CT ---
EXAMINATION TYPE: CT brain cspine wo con DATE OF EXAM: 12/29/2024 COMPARISON: None CLINICAL INDICATION: Female, 49 years old with history of Fall; PHH, Head neck pain after a fall last week. TECHNIQUE: CT scan of the head and cervical spine are performed without contrast. CT DLP: 1521.[address] CTDI: mGy Automated exposure control for dose reduction was used. FINDINGS: There is no acute intracranial hemorrhage, mass effect, or midline shift identified. The ventricles and sulci are within normal limits in size. The globes are intact and the visualized sinuses are hu ar. Cervical spine is visualized in its entirety from C1 through upper thoracic levels and demonstrates s atisfactory alignment without evidence of acute fracture or dislocation. Prevertebral soft tissue ap pears within normal limits. The C1-C2 articulation is unremarkable. IMPRESSION: There is no acute fracture or dislocation evident in the cervical spine. 2. No acute intracranial hemorrhage, mass effect, or midline shift is seen. [facility], , 12/29/2024 6:28 PM
[2024-12-29] MEDS: ACETAMINOPHEN TAB 500 MG TAB PO STA (19:25)
[2024-12-29 19:29] VITALS: BP 111/77; PULSE 81
== END 2024-12-29 19:29 | disposition home or self-care (01) ==
LOC: EC 16:54
DX: S16.1XXA Strain of muscle, fascia and tendon at neck level, initial encounter (principal); Z87.891 Personal history of nicotine dependence; Z88.0 Allergy status to penicillin; Z88.1 Allergy status to other antibiotic agents; Z91.041 Radiographic dye allergy status; Z88.8 Allergy status to other drugs, medicaments and biological substances; W18.30XA Fall on same level, unspecified, initial encounter
CPT/HCPCS: 70450; 72125; 99283

== ENCOUNTER → 2025-02-01 | Outpatient (CLI) | payer MEDICAID ==
--- NOTE | 2025-02-02 07:38 | MM ---
Reason for Exam: Screening (asymptomatic). Last screening mammogram was performed 12 month(s) ago. Patient History: Menarche at age 10. First Full-Term at age 19. Patient has history of breast feeding. Risk Values: Kelsey 5 year model risk: 0.9%. NCI Lifetime model risk: 7.9%. Prior Study Comparison: 06/06/2020 Bilateral Screening Mammogram, [facility]. 09/04/2021 Bilateral Screening Mammogram, [facility]. 11/10/2022 Bilateral MG 3D screening mammo w/cad, [facility]. 02/01/2024 Bilateral MG 3D screening mammo w/cad, Unknown. Tissue Density: The breasts are heterogeneously dense, which may obscure small masses. Findings: Analyzed By CAD. There is no suspicious group of microcalcifications or new suspicious mass in either breast. Overall Assessment: Negative, BI-RAD 1 Management: Screening Mammogram of both breasts in 1 year. . Patient should continue monthly self-breast exams. A clinical breast exam by your physician is recommended on an annual basis. This exam should not preclude additional follow-up of suspicious palpable abnormalities. Note on Kelsey scores and lifetime risk: 1. A Kelsey score greater than 3% is considered moderate risk. If this is the case, consider specialist referral to assess eligibility for a risk reducing agent. 2. If overall lifetime risk for the development of breast cancer is 20% or higher, the patient may qualify for future screening with alternating mammogram and breast MRI. [facility], , 02/02/2025 7:35 AM. Electronically signed and approved by: Juan Dubois M.D. [facility]
== END | disposition home or self-care (01) ==
LOC: RADMAMWWP 15:37
PROVIDERS: ATTEND Internal Medicine
DX: Z12.31 Encounter for screening mammogram for malignant neoplasm of breast (principal); R92.333 Mammographic heterogeneous density, bilateral breasts
CPT/HCPCS: 77063; 77067

== ENCOUNTER → 2025-05-06 | Outpatient (CLI) | payer MEDICAID ==
[2025-05-06 14:43] LABS: Basophils # (A) 0.03 X 10*3/uL (0.00-0.10); Basophils % (A) 0.5 %; Eosinophils # (A) 0.14 X 10*3/uL (0.04-0.35); Eosinophils % (A) 2.1 %; HCT 41.2 % (37.2-46.3); HGB 13.5 g/dL (12.0-15.0); Immature Grans, Automated 0.50 %; Lymphocytes # (A) 1.39 X 10*3/uL (0.90-5.00); Lymphocytes % (A) 21.2 %; MCH 29.7 pg (27.0-32.0); MCHC 32.8 g/dL (32.0-37.0); MCV 90.5 FL (80.0-97.0); Monocytes # (A) 0.54 X 10*3/uL (0.20-1.00); Monocytes % (A) 8.2 %; NRBC Per 100 WBC 0 X 10*3/uL (0.00-0.01); Neutrophils # (A) 4.43 X 10*3/uL (1.80-7.70); Neutrophils % (A) 67.5 %; Platelet Count 237 X 10*3/uL (140-440); RBC 4.55 X 10*6/uL (4.10-5.20); RDW 13.1 % (11.5-14.5); WBC 6.56 X 10*3/uL (4.50-10.00)
[2025-05-06 15:04] LABS: ALT 26 U/L (8-44); AST 22 U/L (13-35); Albumin 4.6 g/dL (3.8-4.9); Albumin/Globulin Ratio 2.56 Ratio (1.60-3.17); Alkaline Phosphatase 87 U/L (41-126); Anion Gap 14.00 mmol/L (4.00-12.00); BUN/Creat Ratio 20.12 Ratio (12.00-20.00); Blood Urea Nitrogen 16.1 mg/dL (9.0-27.0); Calcium 9.5 mg/dL (8.7-10.3); Carbon Dioxide 26.0 mmol/L (21.6-31.8); Chloride 100 mmol/L (96-109); Cholesterol 239.00 mg/dL (0.00-200.00); Globulin 1.8 g/dL (1.6-3.3); Glucose 85 mg/dL (70-110); HDL Cholesterol 66.30 mg/dL (40.00-60.00); LDL Cholesterol,Calculated 144.7 mg/dL (0.0-131.0); Magnesium 1.9 mg/dL (1.5-2.4); Potassium 3.9 mmol/L (3.5-5.5); Sodium 140 mmol/L (135-145); Total Protein 6.4 g/dL (6.2-8.2); Triglycerides 140.00 mg/dL (0.00-149.00); Uric Acid 6.6 mg/dL (2.9-7.7); VLDL Calculation 28.00 mg/dL (5.00-40.00)
== END | disposition home or self-care (01) ==
LOC: LABWHC1 08:07
PROVIDERS: ATTEND Otolaryngology Otology & Neurotology
DX: I10 Essential (primary) hypertension (principal); E78.5 Hyperlipidemia, unspecified; H90.3 Sensorineural hearing loss, bilateral; H81.01 Meniere's disease, right ear; H81.02 Meniere's disease, left ear
CPT/HCPCS: 36415; 80053; 80061; 83735; 84443; 84550; 85025